=== PATIENT | female | born 2000 | race Caucasian/White ===

== ENCOUNTER 2021-01-15 18:19 | Emergency (ER) | payer MEDICAID, SELFPAY ==
[2021-01-15 18:52] VITALS: BP 118/71; PULSE 101; RESP 16; TEMP 37.4; O2SAT 97; BMI 41.6
--- NOTE | 2021-01-15 20:38 | ED.NAVMDI ---
HPI - Nausea/Vomiting/Diarrhea General Chief complaint: Nausea/Vomiting/Diarrhea <NEYMAR Saba Last Filed: 01/15/21 20:59> Stated complaint: vomiting - 11wks preg <NEYMAR Saba Last Filed: 01/15/21 20:59> Time Seen by Provider: 01/15/21 19:50 <NEYMAR Saba Last Filed: 01/15/21 20:59> Source: patient <NEYMAR Saba Last Filed: 01/15/21 20:59> Mode of arrival: ambulatory <NEYMAR Saba Last Filed: 01/15/21 20:59> History of Present Illness HPI Narrative: 20-year-old female at 11 weeks gestation presenting to the ED complaining of nausea, vomiting, and lightheadedness x a few weeks. Admits has been unable to tolerate p.o. x past couple days. Denies fever, chills, abdominal pain, vaginal bleeding, vaginal discharge, dysuria, hematuria <NEYMAR Saba Last Filed: 01/15/21 20:59> MD elicited complaint: nausea and vomiting <NEYMAR Saba Last Filed: 01/15/21 20:59> Related Data Allergies/Adverse reactions: Allergies Allergy/AdvReac Type Severity Reaction Status Date / Time No Known Allergies Allergy Unverified 04/15/20 19:07 <NEYMAR Saba Last Filed: 01/15/21 20:59> Review of Systems Review of Systems: Constitutional: No Fever, No Chills, No Fatigue, No Malaise Cardiovascular: No Chest Pain, No SOB Respiratory: No Cough, No Dyspnea Gastrointestinal: + Nausea, + Vomiting, No Diarrhea, No Constipation, No Abdominal pain Genitourinary: No irregular bleeding, No Dysuria, No Hematuria, No Flank Pain, No vaginal bleeding, No vaginal discharge Musculoskeletal: No joint pain, No Myalgias, No Joint Swelling Skin: No Skin Lesions, No rash Neuro: No Weakness, No Headache <NEYMAR Saba Last Filed: 01/15/21 20:59> Yes all other systems are reviewed and are negative <NEYMAR Saba Last Filed: 01/15/21 20:59> ON LICENSE OF [facility] Past Medical History Attestation statement: The following information was validated with the patient. <NEYMAR Saba - Last Filed: 01/15/21 20:59> Social History Social History: Social History Advance Directives: No Advance Directives Information Provided: No Patient : Yes <NEYMAR Saba - Last Filed: 01/15/21 20:59> Physical Exam Vital Signs: Vital Signs: Last Vital Signs Temp 99.1 F 01/15/21 23:47 Pulse 85 01/15/21 23:47 Resp 16 01/15/21 23:47 BP 112/74 01/15/21 23:47 Pulse Ox 98 01/15/21 23:47 Body Mass Index 41.6 <NEYMAR Saba - Last Filed: 01/15/21 20:59> Vital Signs: Last Vital Signs Temp 99.1 F 01/15/21 23:47 Pulse 85 01/15/21 23:47 Resp 16 01/15/21 23:47 BP 112/74 01/15/21 23:47 Pulse Ox 98 01/15/21 23:47 Body Mass Index 41.6 <FLAVIO Holm- - Last Filed: 01/16/21 01:18> Const: General: cooperative, healthy appearing, no acute distress, well developed and alert <NEYMAR Saba - Last Filed: 01/15/21 20:59> Orientation/consciousness: patient oriented x3 <NEYMAR Saba - Last Filed: 01/15/21 20:59> Limitations: no limitations <NEYMAR Saba - Last Filed: 01/15/21 20:59> HENMT: Head: Yes normal to inspection <NEYMAR Saba - Last Filed: 01/15/21 20:59> Ears: hearing grossly normal bilaterally <NEYMAR Saba - Last Filed: 01/15/21 20:59> General nose exam: Normal external nose present <NEYMAR Saba - Last Filed: 01/15/21 20:59> Face and sinus: Yes normal facial exam <NEYMAR Saba - Last Filed: 01/15/21 20:59> Eyes: General: appearance normal, both eyes and all related structures <NEYMAR Saba - Last Filed: 01/15/21 20:59> EOM: EOMs intact bilaterally <Patricia Grajeda PA - Last Filed: 01/15/21 20:59> Neck: Neck: Yes normal visual inspection and Yes no meningeal signs <Patricia Grajeda PA - Last Filed: 01/15/21 20:59> Resp: Effort & Inspection: normal respiratory effort <Patricia Grajeda PA - Last Filed: 01/15/21 20:59> Cardio: Rate: regular rate <Patricia Grajeda PA - Last Filed: 01/15/21 20:59> GI: Inspection: Yes normal to inspection <Patricia Grajeda PA - Last Filed: 01/15/21 20:59> Palpation (GI): Soft to palpation, nontender, no guarding and not rigid <Patricia Grajeda PA - Last Filed: 01/15/21 20:59> Skin: Rashes: no rashes <Patricia Grajeda PA - Last Filed: 01/15/21 20:59> Wounds: no wounds <Patricia Grajdea PA - Last Filed: 01/15/21 20:59> Neuro: General: patient oriented x3 and no meningeal signs <Patricia Grajeda PA - Last Filed: 01/15/21 20:59> Gait exam (Neuro): Normal gait present <Patricia Grajeda PA - Last Filed: 01/15/21 20:59> Extrem: General: Yes normal to inspection <Patricia Grajeda PA - Last Filed: 01/15/21 20:59> Course Course Course Narrative: -2100--ED care transferred to [facility] pending labs, UA, p.o. challenge, and re-evaluation <Patricia Grajeda PA - Last Filed: 01/15/21 20:59> Labs reviewed and negative for leukocytosis or anemia, urine negative for infection, patient able to tolerate p.o. fluids and crackers. She will be sent home to follow-up with her PCP, [facility] [id number]. Patient has an appointment with her OBGYN at [facility] on Sunday. <FLAVIO Holm-BC - Last Filed: 01/16/21 01:18> MDM - Nausea/Vomiting/Diarrhea MDM Narrative Medical decision making narrative: 20-year-old female at 11 weeks gestation presenting to the ED complaining of nausea, vomiting, and lightheadedness x a few weeks. Admits has been unable to tolerate p.o. x past couple days. On exam tachycardic, NAD, nontoxic appearing, abdomen soft/nontender. Concern for hyperemesis vs dehydration vs metabolic abnormalities. Low concern for infectious etiology. Plan: Labs, UA, IVF, antiemetics, p.o. challenge, reassess <NEYMAR Saba - Last Filed: 01/15/21 20:59> Medical Records Attestation: I reviewed the patient's medical records. <NEYMAR Saba - Last Filed: 01/15/21 20:59> Lab Data Attestation: I reviewed the patient's lab results. <NEYMAR Saba - Last Filed: 01/15/21 20:59> Result diagrams: : 01/15/21 21:02 01/15/21 21:02 <NEYMAR Saba - Last Filed: 01/15/21 20:59> Labs: Lab Results 01/15/21 01/15/21 01/15/21 Range/Units 21:02 21:02 21:02 WBC 10.3 (4.8-10.8) X10*3/uL RBC 5.17 (4.20-5.50) X10*6/uL Hgb 12.5 (12.0-16.0) g/dl Hct 39.4 (37-47) % MCV 76.2 L (80-98) fL MCH 24.2 L (27.0-33.0) pg MCHC 31.7 (31.0-35.0) g/dl RDW 14.1 (11.0-16.0) % Plt Count 378 (160-400) X10*3/uL MPV 9.1 L (9.4-12.3) fL Immature Gran % (Auto) 0.3 (0.0-0.4) % Neut % (Auto) 71.6 (45-73) % Lymph % (Auto) 20.1 (20-40) % [place] % (Auto) 6.9 (2-11) % Eos % (Auto) 1.0 (0-4) % Baso % (Auto) 0.1 (0-2) % Lymph # (Auto) 2.1 (1.2-4.9) X10*3/uL [place] # (Auto) 0.7 (0.1-1.2) X10*3/uL Eos # (Auto) 0.1 (0.0-0.4) X10*3/uL Baso # (Auto) 0.0 (0.0-0.2) X10*3/uL Abs Immat Gran (auto) 0.03 (0.00-0.03) X10*3/uL Absolute Neuts (auto) 7.4 (2.0-8.3) X10*3/uL Absolute Nucleated RBC 0.000 (0.0-0.012) X10*3/uL Nucleated RBC % (auto) 0.0 (0.0-0.2) /100WBC Hold Blue Top SEE NOTE Sodium 137 (135-145) mmol/L Potassium 4.4 (3.3-5.1) mmol/L Chloride 106 (96-108) mmol/L Carbon Dioxide 20 L (22-29) mmol/L Anion Gap 15 (12-20) BUN 7 L (9-16) mg/dL Creatinine 0.58 (0.5-1.4) mg/dL Estim Creat Clear Calc 189.1 Estimated GFR > 60 Random Glucose 76 (60-115) mg/dL Calcium 9.6 (8.4-10.2) mg/dL Magnesium 1.9 (1.6-2.6) mg/dL Total Bilirubin 0.3 (0.0-1.0) mg/dL Direct Bilirubin < 0.2 (0.0-0.5) mg/dL AST 14 (5-31) U/L ALT 9 (0-31) U/L Alkaline Phosphatase 100 (39-117) U/L Total Protein 8.0 (6.5-8.0) g/dL Albumin 4.0 (3.5-5.0) g/dL Lipase 13 (8-78) U/L Beta HCG, Quant 871307 mIU/mL Urine Color Urine Appearance Urine pH (5.0-8.0) Ur Specific University (1.005-1.025) Urine Protein (NEG-TRACE) MG/DL Urine Glucose (UA) (NEG) MG/DL Urine Ketones (NEG) MG/DL Urine Blood (NEG) Urine Nitrite (NEG) Ur Leukocyte Esterase (NEG) Urine RBC (0) /HPF Urine WBC (0-4) /HPF Ur Squamous Epith Cells /LPF Calcium Oxalate Crystal /LPF Urine Bacteria /LPF Urine Mucus /LPF 01/15/21 Range/Units 21:02 WBC (4.8-10.8) X10*3/uL RBC (4.20-5.50) X10*6/uL Hgb (12.0-16.0) g/dl Hct (37-47) % MCV (80-98) fL MCH (27.0-33.0) pg MCHC (31.0-35.0) g/dl RDW (11.0-16.0) % Plt Count (160-400) X10*3/uL MPV (9.4-12.3) fL Immature Gran % (Auto) (0.0-0.4) % Neut % (Auto) (45-73) % Lymph % (Auto) (20-40) % [place] % (Auto) (2-11) % Eos % (Auto) (0-4) % Baso % (Auto) (0-2) % Lymph # (Auto) (1.2-4.9) X10*3/uL [place] # (Auto) (0.1-1.2) X10*3/uL Eos # (Auto) (0.0-0.4) X10*3/uL Baso # (Auto) (0.0-0.2) X10*3/uL Abs Immat Gran (auto) (0.00-0.03) X10*3/uL Absolute Neuts (auto) (2.0-8.3) X10*3/uL Absolute Nucleated RBC (0.0-0.012) X10*3/uL Nucleated RBC % (auto) (0.0-0.2) /100WBC Hold Blue Top Sodium (135-145) mmol/L Potassium (3.3-5.1) mmol/L Chloride (96-108) mmol/L Carbon Dioxide (22-29) mmol/L Anion Gap (12-20) BUN (9-16) mg/dL Creatinine (0.5-1.4) mg/dL Estim Creat Clear Calc Estimated GFR Random Glucose (60-115) mg/dL Calcium (8.4-10.2) mg/dL Magnesium (1.6-2.6) mg/dL Total Bilirubin (0.0-1.0) mg/dL Direct Bilirubin (0.0-0.5) mg/dL AST (5-31) U/L ALT (0-31) U/L Alkaline Phosphatase (39-117) U/L Total Protein (6.5-8.0) g/dL Albumin (3.5-5.0) g/dL Lipase (8-78) U/L Beta HCG, Quant mIU/mL Urine Color DARK YELLOW Urine Appearance CLEAR Urine pH 5.5 (5.0-8.0) Ur Specific University >= 1.030 H (1.005-1.025) Urine Protein NEG (NEG-TRACE) MG/DL Urine Glucose (UA) NEG (NEG) MG/DL Urine Ketones 5 (NEG) MG/DL Urine Blood 2+ H (NEG) Urine Nitrite NEG (NEG) Ur Leukocyte Esterase NEG (NEG) Urine RBC 0-2 (0) /HPF Urine WBC 0-2 (0-4) /HPF Ur Squamous Epith Cells TRACE /LPF Calcium Oxalate Crystal TRACE /LPF Urine Bacteria TRACE /LPF Urine Mucus 1+ /LPF <NEYMAR Saba - Last Filed: 01/15/21 20:59> Lab Results 01/15/21 01/15/21 01/15/21 Range/Units 21:02 21:02 21:02 WBC 10.3 (4.8-10.8) X10*3/uL RBC 5.17 (4.20-5.50) X10*6/uL Hgb 12.5 (12.0-16.0) g/dl Hct 39.4 (37-47) % MCV 76.2 L (80-98) fL MCH 24.2 L (27.0-33.0) pg MCHC 31.7 (31.0-35.0) g/dl RDW 14.1 (11.0-16.0) % Plt Count 378 (160-400) X10*3/uL MPV 9.1 L (9.4-12.3) fL Immature Gran % (Auto) 0.3 (0.0-0.4) % Neut % (Auto) 71.6 (45-73) % Lymph % (Auto) 20.1 (20-40) % [place] % (Auto) 6.9 (2-11) % Eos % (Auto) 1.0 (0-4) % Baso % (Auto) 0.1 (0-2) % Lymph # (Auto) 2.1 (1.2-4.9) X10*3/uL [place] # (Auto) 0.7 (0.1-1.2) X10*3/uL Eos # (Auto) 0.1 (0.0-0.4) X10*3/uL Baso # (Auto) 0.0 (0.0-0.2) X10*3/uL Abs Immat Gran (auto) 0.03 (0.00-0.03) X10*3/uL Absolute Neuts (auto) 7.4 (2.0-8.3) X10*3/uL Absolute Nucleated RBC 0.000 (0.0-0.012) X10*3/uL Nucleated RBC % (auto) 0.0 (0.0-0.2) /100WBC Hold Blue Top SEE NOTE Sodium 137 (135-145) mmol/L Potassium 4.4 (3.3-5.1) mmol/L Chloride 106 (96-108) mmol/L Carbon Dioxide 20 L (22-29) mmol/L Anion Gap 15 (12-20) BUN 7 L (9-16) mg/dL Creatinine 0.58 (0.5-1.4) mg/dL Estim Creat Clear Calc 189.1 Estimated GFR > 60 Random Glucose 76 (60-115) mg/dL Calcium 9.6 (8.4-10.2) mg/dL Magnesium 1.9 (1.6-2.6) mg/dL Total Bilirubin 0.3 (0.0-1.0) mg/dL Direct Bilirubin < 0.2 (0.0-0.5) mg/dL AST 14 (5-31) U/L ALT 9 (0-31) U/L Alkaline Phosphatase 100 (39-117) U/L Total Protein 8.0 (6.5-8.0) g/dL Albumin 4.0 (3.5-5.0) g/dL Lipase 13 (8-78) U/L Beta HCG, Quant 429018 mIU/mL Urine Color Urine Appearance Urine pH (5.0-8.0) Ur Specific University (1.005-1.025) Urine Protein (NEG-TRACE) MG/DL Urine Glucose (UA) (NEG) MG/DL Urine Ketones (NEG) MG/DL Urine Blood (NEG) Urine Nitrite (NEG) Ur Leukocyte Esterase (NEG) Urine RBC (0) /HPF Urine WBC (0-4) /HPF Ur Squamous Epith Cells /LPF Calcium Oxalate Crystal /LPF Urine Bacteria /LPF Urine Mucus /LPF 01/15/21 Range/Units 21:02 WBC (4.8-10.8) X10*3/uL RBC (4.20-5.50) X10*6/uL Hgb (12.0-16.0) g/dl Hct (37-47) % MCV (80-98) fL MCH (27.0-33.0) pg MCHC (31.0-35.0) g/dl RDW (11.0-16.0) % Plt Count (160-400) X10*3/uL MPV (9.4-12.3) fL Immature Gran % (Auto) (0.0-0.4) % Neut % (Auto) (45-73) % Lymph % (Auto) (20-40) % [place] % (Auto) (2-11) % Eos % (Auto) (0-4) % Baso % (Auto) (0-2) % Lymph # (Auto) (1.2-4.9) X10*3/uL [place] # (Auto) (0.1-1.2) X10*3/uL Eos # (Auto) (0.0-0.4) X10*3/uL Baso # (Auto) (0.0-0.2) X10*3/uL Abs Immat Gran (auto) (0.00-0.03) X10*3/uL Absolute Neuts (auto) (2.0-8.3) X10*3/uL Absolute Nucleated RBC (0.0-0.012) X10*3/uL Nucleated RBC % (auto) (0.0-0.2) /100WBC Hold Blue Top Sodium (135-145) mmol/L Potassium (3.3-5.1) mmol/L Chloride (96-108) mmol/L Carbon Dioxide (22-29) mmol/L Anion Gap (12-20) BUN (9-16) mg/dL Creatinine (0.5-1.4) mg/dL Estim Creat Clear Calc Estimated GFR Random Glucose (60-115) mg/dL Calcium (8.4-10.2) mg/dL Magnesium (1.6-2.6) mg/dL Total Bilirubin (0.0-1.0) mg/dL Direct Bilirubin (0.0-0.5) mg/dL AST (5-31) U/L ALT (0-31) U/L Alkaline Phosphatase (39-117) U/L Total Protein (6.5-8.0) g/dL Albumin (3.5-5.0) g/dL Lipase (8-78) U/L Beta HCG, Quant mIU/mL Urine Color DARK YELLOW Urine Appearance CLEAR Urine pH 5.5 (5.0-8.0) Ur Specific University >= 1.030 H (1.005-1.025) Urine Protein NEG (NEG-TRACE) MG/DL Urine Glucose (UA) NEG (NEG) MG/DL Urine Ketones 5 (NEG) MG/DL Urine Blood 2+ H (NEG) Urine Nitrite NEG (NEG) Ur Leukocyte Esterase NEG (NEG) Urine RBC 0-2 (0) /HPF Urine WBC 0-2 (0-4) /HPF Ur Squamous Epith Cells TRACE /LPF Calcium Oxalate Crystal TRACE /LPF Urine Bacteria TRACE /LPF Urine Mucus 1+ /LPF <FLAVIO Holm-MCKAYLA - Last Filed: 01/16/21 01:18> Discharge Plan Discharge Clinical Impression: Nausea and vomiting during , Dehydration <NEYMAR Saba - Last Filed: 01/15/21 20:59> Patient Disposition: Home, Self-Care <NEYMAR Saba - Last Filed: 01/15/21 20:59> Instructions: Hyperemesis Gravidarum (ED) <NEYMAR Saba - Last Filed: 01/15/21 20:59> Additional Instructions: You were seen here today for vomiting. All the lab work was negative for any abnormal findings. Please follow-up with your OBGYN in 2-3 days. You may return if you will experience worsening symptoms. Please make sure you drink plenty of fluids and stay hydrated. <NEYMAR Saba - Last Filed: 01/15/21 20:59> Referrals: Rajan Conley MD [Physician] - 2 days <NEYMAR Saba - Last Filed: 01/15/21 20:59> Interventions: ED Discharge Assessment Last Done: 01/15/21 23:47 <NEYMAR Saba - Last Filed: 01/15/21 20:59> Discharge Date/Time: 01/15/21 23:48 <NEYMAR Saba - Last Filed: 01/15/21 20:59>
[2021-01-15] MEDS: diphenhydrAMINE HCL 50 MG/ML VIAL 25 MG IVPUSH (21:04)
[2021-01-15] MEDS: 0.9 % Sodium Chloride 1,000 ML 999 ML IVCONT ×2 (21:04)
[2021-01-15 21:10] LABS: MANUAL DIFF FLAG NO
[2021-01-15 21:11] LABS: Basophils Percent Auto 0.1 % (0-2); Eosinophils Absolute Auto 0.1 X10*3/uL (0.0-0.4); Hematocrit 39.4 % (37-47); Hemoglobin 12.5 g/dl (12.0-16.0); Imm Gran Abs Auto 0.03 X10*3/uL (0.00-0.03); Imm Gran Pct Auto 0.3 % (0.0-0.4); Lymphocytes Absolute Auto 2.1 X10*3/uL (1.2-4.9); Lymphocytes Percent Auto 20.1 % (20-40); Mean Corpuscular HGB Conc 31.7 g/dl (31.0-35.0); Mean Corpuscular Hemoglobin 24.2 pg (27.0-33.0); Mean Corpuscular Volume 76.2 fL (80-98); Mean Platelet Volume 9.1 fL (9.4-12.3); Monocytes Absolute Auto 0.7 X10*3/uL (0.1-1.2); Monocytes Percent Auto 6.9 % (2-11); Neutrophils Absolute Auto 7.4 X10*3/uL (2.0-8.3); Neutrophils Percent Auto 71.6 % (45-73); Platelet Count 378 X10*3/uL (160-400); Red Blood Count 5.17 X10*6/uL (4.20-5.50); Red Cell Distribution Width 14.1 % (11.0-16.0); White Blood Count 10.3 X10*3/uL (4.8-10.8)
[2021-01-15] MEDS: Pyridoxine HCl (Vitamin B6) 50 MG TABLET 25 MG PO (21:27)
[2021-01-15 21:30] LABS: Glucose Urine UA NEG (NEG); Leukocyte Esterase Urine NEG (NEG); Nitrite Urine NEG (NEG); PH 5.5 (5.0-8.0); Specific Gravity - Urine >= 1.030 (1.005-1.025); Urine Blood 2+ (NEG); Urine Ketones 5 MG/DL (NEG); Urine Protein NEG (NEG-TRACE)
[2021-01-15 21:32] LABS: Appearance Urine CLEAR; Color Urine DARK YELLOW
[2021-01-15 21:39] LABS: Alanine Aminotransferase 9 U/L (0-31); Alkaline Phosphatase 100 U/L (39-117); Anion Gap 15 (12-20); Aspartate Amino Transferase 14 U/L (5-31); Bilirubin Direct < 0.2 mg/dL (0.0-0.5); Bilirubin Total 0.3 mg/dL (0.0-1.0); Blood Urea Nitrogen 7 mg/dL (9-16); Calcium 9.6 mg/dL (8.4-10.2); Carbon Dioxide 20 mmol/L (22-29); Chloride 106 mmol/L (96-108); Creatinine Clr Calc Pharmacy 189.1; Estimated Glomerular Filt Rate > 60; Glucose Random 76 mg/dL (60-115); Lipase 13 U/L (8-78); Magnesium 1.9 mg/dL (1.6-2.6); Potassium 4.4 mmol/L (3.3-5.1); Sodium 137 mmol/L (135-145)
[2021-01-15 22:02] LABS: Bacteria Urine TRACE /LPF; Mucus Urine 1+ /LPF; RBC Urine 0-2 /HPF (0); Squamous Epithelial Cell Urine TRACE /LPF; WBC Urine 0-2 /HPF (0-4)
[2021-01-15 22:03] LABS: Calcium Oxalate Crystals Urine TRACE /LPF
[2021-01-15 23:47] VITALS: BP 112/74; PULSE 85; RESP 16; TEMP 37.3; O2SAT 98
== END 2021-01-15 23:48 | disposition home or self-care (01) ==
PROVIDERS: Physician Assistant; Emergency Provider Internal Medicine
DX: O99.281 Endocrine, nutritional and metabolic diseases complicating pregnancy, first trimester (principal); E86.0 Dehydration; O21.9 Vomiting of pregnancy, unspecified; Z3A.11 11 weeks gestation of pregnancy
CPT/HCPCS: 36415; 80048; 80076; 81001; 83690; 83735; 84702; 85025; 96361; 96374; 99284; J1200

== ENCOUNTER 2021-02-18 16:54 | Emergency (ER) | payer MEDICAID, SELFPAY ==
[2021-02-18 17:12] VITALS: BP 107/53; PULSE 115; RESP 19; TEMP 37.1; O2SAT 99; BMI 41.1
--- NOTE | 2021-02-18 17:13 | ED.GENADULT ---
HPI - General Adult General Chief complaint: Upper Respiratory Symptoms Stated complaint: Asthma? Time Seen by Provider: 02/18/21 17:12 Related Data Allergies Allergy/AdvReac Type Severity Reaction Status Date / Time No Known Allergies Allergy Verified 02/18/21 17:20 [facility] Past Medical History Medical History (Updated 02/18/21 @ 17:16 by Brigette Ricci) Asthma Social History Social History Patient : Yes Course Course Course Narrative: 20-year-old female who is currently 16 weeks has a follow-up appointment [facility] March 02 she recently moved from [place] and she was diagnosed in [place] with this new due date Aug 04 confirmed by last menstrual. Has not had an ultrasound. She is [id number]. She is presenting to the ED with complaints of URI symptoms which includes rhinorrhea/nasal congestion, sore throat, dry cough with wheezing and shortness of breath for the past 3 days worse today. She also reports that she has been having nausea/vomiting and unable to keep anything down due to her . Any urinary symptoms or vaginal bleeding. She reports daughter was sick with similar symptoms. She denies recent travel. On exam patient is alert and oriented x3. Not in any acute distress. She is stable to go back to the waiting room to await for further evaluation treatment to the emergency department. At this time labs, COVID/RSV/flu and rapid strep obtained. Patient declined x-ray at this time.
[2021-02-18 18:07] LABS: IDNOW Serial# 08D9AD1C; Strep A Nucleic Acid Negative (Negative)
[2021-02-18 18:15] LABS: MANUAL DIFF FLAG NO
[2021-02-18 18:16] LABS: Influenza A PCR NEGATIVE (Negative); Influenza B PCR NEGATIVE (Negative); Resp Syncy Virus RNA Qual PCR NEGATIVE (Negative); SARS COV2 PCR INHOUSE NEGATIVE (Negative)
[2021-02-18 18:24] LABS: Appearance Urine HAZY; Color Urine YELLOW; Glucose Urine UA NEG (NEG); Leukocyte Esterase Urine NEG (NEG); Nitrite Urine NEG (NEG); Specific Gravity - Urine >= 1.030 (1.005-1.025); Urine Blood 2+ (NEG); Urine Ketones NEG (NEG); Urine Protein 1+ MG/DL (NEG-TRACE)
[2021-02-18 18:25] LABS: UPreg QC Valid YES; Urine Pregnancy POSITIVE (NEGATIVE)
[2021-02-18 18:29] LABS: Basophils Percent Auto 0.1 % (0-2); Eosinophils Absolute Auto 0.1 X10*3/uL (0.0-0.4); Eosinophils Percent Auto 1.1 % (0-4); Hematocrit 36.1 % (37-47); Hemoglobin 11.7 g/dl (12.0-16.0); Imm Gran Abs Auto 0.12 X10*3/uL (0.00-0.03); Lymphocytes Absolute Auto 1.2 X10*3/uL (1.2-4.9); Lymphocytes Percent Auto 10.8 % (20-40); Mean Corpuscular HGB Conc 32.4 g/dl (31.0-35.0); Mean Corpuscular Hemoglobin 24.1 pg (27.0-33.0); Mean Corpuscular Volume 74.3 fL (80-98); Mean Platelet Volume 9.2 fL (9.4-12.3); Monocytes Absolute Auto 0.9 X10*3/uL (0.1-1.2); Monocytes Percent Auto 7.9 % (2-11); Neutrophils Percent Auto 79.1 % (45-73); Platelet Count 327 X10*3/uL (160-400); Red Blood Count 4.86 X10*6/uL (4.20-5.50); Red Cell Distribution Width 14.1 % (11.0-16.0); White Blood Count 11.4 X10*3/uL (4.8-10.8)
[2021-02-18 18:44] LABS: Anion Gap 13 (12-20); Blood Urea Nitrogen 5 mg/dL (9-16); Calcium 9.3 mg/dL (8.4-10.2); Carbon Dioxide 20 mmol/L (22-29); Chloride 106 mmol/L (96-108); Creatinine Clr Calc Pharmacy 191.3; Estimated Glomerular Filt Rate > 60; Glucose Random 87 mg/dL (60-115); Magnesium 1.6 mg/dL (1.6-2.6); Potassium 3.9 mmol/L (3.3-5.1); Sodium 135 mmol/L (135-145)
[2021-02-18 19:13] LABS: UACC CULT YES
[2021-02-18 19:14] LABS: Bacteria Urine 1+ /LPF; Calcium Oxalate Crystals Urine 1+ /LPF; Mucus Urine 2+ /LPF; Squamous Epithelial Cell Urine 1+ /LPF
--- NOTE | 2021-02-18 19:25 | ED_ITS ---
HPI - URI/Sore Throat General Chief Complaint: Upper Respiratory Symptoms Stated Complaint: Asthma? Time Seen by Provider: 02/18/21 17:12 Source: patient Mode of arrival: ambulatory Limitations: no limitations History of Present Illness HPI Narrative: Patient presents to ED for coughing, sore throat, and nasal congestion for the past 2 days. Patient denies any chest pain or shortness of breath. Patient denies any calf pain, chest pain on inspiration, fever or chills. Patient states not vaccinated against COVID virus. MD elicited complaint: cough and sore throat Related Data Previous Rx's Medication Instructions Recorded nitrofurantoin monohyd/m-cryst 100 mg PO Q12H 7 Days #14 cap 02/18/21 [Macrobid] Allergies Allergy/AdvReac Type Severity Reaction Status Date / Time No Known Allergies Allergy Verified 02/18/21 17:20 Review of Systems Review of Systems: Yes all other systems are reviewed and are negative Constitutional: Constitutional: Reports as per HPI and Reports no additional constitutional complaints Eyes: Eyes: Reports as per HPI and Reports no additional eye complaints ENT: Reports system reviewed and no additional complaints, except as documented, Reports as per HPI, Reports nasal congestion and Reports sore throat Cardiovascular: Cardiovascular: Reports as per HPI, Reports no additional cardiovascular complaints, Denies chest pain and Denies dyspnea Respiratory: Respiratory: Reports as per HPI, Reports no additional respiratory complaints, Reports cough and Denies dyspnea Gastrointestinal: Gastrointestinal: Reports as per HPI, Reports no additional gastrointestinal complaints and Denies abdominal pain Genitourinary: Genitourinary: Reports no additional female genitourinary complaints, Reports as per HPI, Denies abnormal vaginal bleeding, Denies urinary frequency, Denies difficulty voiding and Denies dysuria Musculoskeletal: Musculoskeletal: Reports no additional musculoskeletal complaints and Denies as per HPI Neurologic: Reports system reviewed and no additional complaints, except as documented and Reports as per HPI Psychiatric: Psychiatric: Reports no additional psychiatric complaints and Reports as per HPI [facility] Past Medical History Medical History (Updated 02/18/21 @ 19:32 by NEYMAR Mireles) Asthma Social History Social History Advance Directives: No Advance Directives Information Provided: Yes Patient : Yes Physical Exam Vital Signs: Vital Signs: Last Vital Signs Temp 98.8 F 02/18/21 17:12 Pulse 115 H 02/18/21 17:12 Resp 19 02/18/21 17:12 BP 107/53 L 02/18/21 17:12 Pulse Ox 99 02/18/21 17:12 Body Mass Index 41.1 Const: General: cooperative, healthy appearing, comfortable, no acute distress, well developed, alert and awake Orientation/consciousness: patient oriented x3 HENMT: Head: Yes normal to inspection, Yes No palpable skull fracture present, Yes normocephalic, Yes atraumatic and No abrasion Ears: hearing grossly normal bilaterally and external ears normal General nose exam: Normal external nose present and Normal nares present Face and sinus: Yes normal facial exam and Yes sinuses nontender Throat: Yes posterior oropharynx normal, Yes tonsils normal and Yes uvula midline Eyes: General: appearance normal, both eyes and all related structures Neck: Neck: Yes normal visual inspection, Yes full ROM, Yes no lymphadenopathy, Yes no meningeal signs, Yes trachea midline, Yes supple and No tender Chest: Chest palpation & inspection: normal inspection of the chest and normal palpation of entire chest wall Resp: Effort & Inspection: normal respiratory effort and able to speak in complete sentences Auscultation: clear to auscultation bilaterally Cardio: Jugular venous distension: no JVD Heart sounds: S1 normal heart sound present and S2 normal heart sound present GI: Inspection: Yes normal to inspection Palpation (GI): Soft to palpation, not firm, nontender, no guarding and not rigid : General: No CVA tenderness and Yes no CVA tenderness Back/Spine/Pelvis: Back: no CVA tenderness, No CVA tenderness and No back tenderness Skin: General skin exam: no rashes or lesions noted and elasticity normal Neuro: General: patient oriented x3, gait normal, no meningeal signs and CN's II-XI intact bilaterally Cranial nerves: Yes CN's II-XII intact bilaterally Extrem: Other: Negative for swelling, pitting edema,or calf tenderness General: Yes normal to inspection and Yes full ROM Psych: Appearance: grossly normal, well kempt and not disheveled Course Course Course Narrative: Labs ordered at triage. COVID swab ordered. Patient refuses chest x-ray to check for pneumonia even though I informed patient her abdomen will be covered with a shield. Patient still refused a chest x-ray. Reevaluation(s) Reevaluation #1: COVID swab and rapid strep came back negative. Patient blood work is normal. Lungs negative for wheezing. Nurse will give patient albuterol inhaler to use as needed. Patient formally Tylenol safe. UA shows mild UTI Time: 19:30 MDM - URI/Sore Throat MDM Narrative Medical decision making narrative: UTI. Albuterol inhaler Lab Data Result diagrams: 02/18/21 18:08 02/18/21 18:08 Labs: Lab Results 02/18/21 02/18/21 02/18/21 Range/Units 17:21 17:21 18:03 WBC (4.8-10.8) X10*3/uL RBC (4.20-5.50) X10*6/uL Hgb (12.0-16.0) g/dl Hct (37-47) % MCV (80-98) fL MCH (27.0-33.0) pg MCHC (31.0-35.0) g/dl RDW (11.0-16.0) % Plt Count (160-400) X10*3/uL MPV (9.4-12.3) fL Immature Gran % (Auto) (0.0-0.4) % Neut % (Auto) (45-73) % Lymph % (Auto) (20-40) % [place] % (Auto) (2-11) % Eos % (Auto) (0-4) % Baso % (Auto) (0-2) % Lymph # (Auto) (1.2-4.9) X10*3/uL [place] # (Auto) (0.1-1.2) X10*3/uL Eos # (Auto) (0.0-0.4) X10*3/uL Baso # (Auto) (0.0-0.2) X10*3/uL Abs Immat Gran (auto) (0.00-0.03) X10*3/uL Absolute Neuts (auto) (2.0-8.3) X10*3/uL Absolute Nucleated RBC (0.0-0.012) X10*3/uL Nucleated RBC % (auto) (0.0-0.2) /100WBC Sodium (135-145) mmol/L Potassium (3.3-5.1) mmol/L Chloride (96-108) mmol/L Carbon Dioxide (22-29) mmol/L Anion Gap (12-20) BUN (9-16) mg/dL Creatinine (0.5-1.4) mg/dL Estim Creat Clear Calc Estimated GFR Random Glucose (60-115) mg/dL Calcium (8.4-10.2) mg/dL Magnesium (1.6-2.6) mg/dL Beta HCG, Quant mIU/mL Urine Color YELLOW Urine Appearance HAZY Urine pH 6.0 (5.0-8.0) Ur Specific [place] >= 1.030 H (1.005-1.025) Urine Protein 1+ H (NEG-TRACE) MG/DL Urine Glucose (UA) NEG (NEG) MG/DL Urine Ketones NEG (NEG) MG/DL Urine Blood 2+ H (NEG) Urine Nitrite NEG (NEG) Ur Leukocyte Esterase NEG (NEG) Urine RBC 1-4 (0) /HPF Urine WBC 5-9 H (0-4) /HPF Ur Squamous Epith Cells 1+ /LPF Calcium Oxalate Crystal 1+ /LPF Urine Bacteria 1+ /LPF Urine Mucus 2+ /LPF Urine Test (NEGATIVE) Coronavirus (PCR) NEGATIVE (Negative) Influenza Type A (PCR) NEGATIVE (Negative) Influenza Type B (PCR) NEGATIVE (Negative) RSV RNA Qual (PCR) NEGATIVE (Negative) S. pyogenes GrpA AILEEN Negative (Negative) 02/18/21 02/18/21 02/18/21 Range/Units 18:03 18:08 18:08 WBC 11.4 H (4.8-10.8) X10*3/uL RBC 4.86 (4.20-5.50) X10*6/uL Hgb 11.7 L (12.0-16.0) g/dl Hct 36.1 L (37-47) % MCV 74.3 L (80-98) fL MCH 24.1 L (27.0-33.0) pg MCHC 32.4 (31.0-35.0) g/dl RDW 14.1 (11.0-16.0) % Plt Count 327 (160-400) X10*3/uL MPV 9.2 L (9.4-12.3) fL Immature Gran % (Auto) 1.0 H (0.0-0.4) % Neut % (Auto) 79.1 H (45-73) % Lymph % (Auto) 10.8 L (20-40) % [place] % (Auto) 7.9 (2-11) % Eos % (Auto) 1.1 (0-4) % Baso % (Auto) 0.1 (0-2) % Lymph # (Auto) 1.2 (1.2-4.9) X10*3/uL [place] # (Auto) 0.9 (0.1-1.2) X10*3/uL Eos # (Auto) 0.1 (0.0-0.4) X10*3/uL Baso # (Auto) 0.0 (0.0-0.2) X10*3/uL Abs Immat Gran (auto) 0.12 H (0.00-0.03) X10*3/uL Absolute Neuts (auto) 9.0 H (2.0-8.3) X10*3/uL Absolute Nucleated RBC 0.000 (0.0-0.012) X10*3/uL Nucleated RBC % (auto) 0.0 (0.0-0.2) /100WBC Sodium 135 (135-145) mmol/L Potassium 3.9 (3.3-5.1) mmol/L Chloride 106 (96-108) mmol/L Carbon Dioxide 20 L (22-29) mmol/L Anion Gap 13 (12-20) BUN 5 L (9-16) mg/dL Creatinine 0.57 (0.5-1.4) mg/dL Estim Creat Clear Calc 191.3 Estimated GFR > 60 Random Glucose 87 (60-115) mg/dL Calcium 9.3 (8.4-10.2) mg/dL Magnesium 1.6 (1.6-2.6) mg/dL Beta HCG, Quant 86886 mIU/mL Urine Color Urine Appearance Urine pH (5.0-8.0) Ur Specific [place] (1.005-1.025) Urine Protein (NEG-TRACE) MG/DL Urine Glucose (UA) (NEG) MG/DL Urine Ketones (NEG) MG/DL Urine Blood (NEG) Urine Nitrite (NEG) Ur Leukocyte Esterase (NEG) Urine RBC (0) /HPF Urine WBC (0-4) /HPF Ur Squamous Epith Cells /LPF Calcium Oxalate Crystal /LPF Urine Bacteria /LPF Urine Mucus /LPF Urine Test POSITIVE H (NEGATIVE) Coronavirus (PCR) (Negative) Influenza Type A (PCR) (Negative) Influenza Type B (PCR) (Negative) RSV RNA Qual (PCR) (Negative) S. pyogenes GrpA AILEEN (Negative) Discharge Plan Discharge Clinical Impression: Upper respiratory infection Patient Disposition: Home, Self-Care Instructions: Upper Respiratory Infection (ED), Urinary Tract Infection in P regnancy (ED) Additional Instructions: Return to the ED immediately for any abdominal pain, nausea, vomiting, chest pain, shortness of breath, swelling of lower extremity, weakness, dizziness, vaginal bleeding, vaginal discharge, calf pain, chest pain on inspiration, flank pain, fever, chills, dysuria, hematuria, or any other concerning symptoms. Please follow-up with your thread roller or PCP. Taken Tylenol for any pain relief or fever. Use albuterol inhaler given to you by nurse as needed. Two puffs every 6 hours as needed. Prescriptions: New nitrofurantoin monohyd/m-cryst [Macrobid] 100 mg capsule 100 mg PO Q12H 7 Days Qty: 14 RF: 0 Print Language: Nauruan
[2021-02-18] MEDS: Albuterol Sulfate 90 MCG 8 GM INHALER 4 PUFF INHALE (19:56)
[2021-02-18 20:09] VITALS: BP 127/68; PULSE 98; RESP 18; O2SAT 99
== END 2021-02-18 20:15 | disposition home or self-care (01) ==
PROVIDERS: Physician Assistant; Physician Assistant Medical; Emergency Provider Emergency Medicine; PCP Pediatrics
DX: O99.519 Diseases of the respiratory system complicating pregnancy, unspecified trimester (principal); J06.9 Acute upper respiratory infection, unspecified; Z3A.00 Weeks of gestation of pregnancy not specified; Z20.822 Contact with and (suspected) exposure to COVID-19
CPT/HCPCS: 0241U; 36415; 80048; 81001; 81025; 83735; 84702; 85025; 87086; 87651; 99283; 99284

== ENCOUNTER 2021-06-02 01:00 | Emergency (ER) | payer MEDICAID, SELFPAY ==
[2021-06-02 01:16] VITALS: BP 128/72; PULSE 102; RESP 18; TEMP 37.1; O2SAT 99; BMI 42.5
[2021-06-02 01:37] LABS: MANUAL DIFF FLAG NO
[2021-06-02 01:38] LABS: Basophils Percent Auto 0.1 % (0-2); Eosinophils Absolute Auto 0.2 X10*3/uL (0.0-0.4); Eosinophils Percent Auto 1.5 % (0-4); Hematocrit 32.9 % (37.0-47.0); Hemoglobin 10.1 g/dl (12.0-16.0); Imm Gran Abs Auto 0.14 X10*3/uL (0.00-0.03); Lymphocytes Absolute Auto 2.2 X10*3/uL (1.2-4.9); Lymphocytes Percent Auto 15.6 % (20-40); Mean Corpuscular HGB Conc 30.7 g/dl (31.0-35.0); Mean Corpuscular Hemoglobin 22.1 pg (27.0-33.0); Mean Corpuscular Volume 71.8 fL (80.0-98.0); Mean Platelet Volume 8.9 fL (9.4-12.3); Monocytes Absolute Auto 1.1 X10*3/uL (0.1-1.2); Monocytes Percent Auto 7.6 % (2-11); Neutrophils Absolute Auto 10.52 x10*3/uL (2.0-8.3); Neutrophils Percent Auto 74.2 % (45-73); Platelet Count 373 X10*3/uL (160-400); Red Blood Count 4.58 X10*6/uL (4.20-5.50); Red Cell Distribution Width 16.1 % (11.0-16.0); White Blood Count 14.2 X10*3/uL (4.8-10.8)
[2021-06-02 01:54] LABS: COVID-19 Test Negative (Negative)
[2021-06-02 02:04] LABS: Alanine Aminotransferase 7 U/L (0-31); Albumin Level 3.5 g/dL (3.5-5.0); Alkaline Phosphatase 117 U/L (39-117); Anion Gap 11 (12-20); Aspartate Amino Transferase 9 U/L (5-31); Bilirubin Total < 0.2 mg/dL (0.0-1.0); Blood Urea Nitrogen 6 mg/dL (9-16); Calcium 9.4 mg/dL (8.4-10.2); Carbon Dioxide 22 mmol/L (22-29); Chloride 107 mmol/L (96-108); Creatinine Clr Calc Pharmacy 191.4; Estimated Glomerular Filt Rate > 60; Glucose Random 73 mg/dL (60-115); Sodium 136 mmol/L (135-145); Total Protein 6.8 g/dL (6.5-8.0)
--- NOTE | 2021-06-02 03:16 | ED_ITS ---
HPI - General Adult General Chief complaint: Dizziness Stated complaint: heartburn/ 31 weeks preg Time Seen by Provider: 06/02/21 03:10 Source: patient Mode of arrival: ambulatory Limitations: no limitations History of Present Illness HPI narrative: Patient is a at 31 weeks of gestational age. Patient states that she has been experiencing a lot of reflux. Patient has been taking pantoprazole without any relief. Patient denies abdominal pain, no cramping, no vaginal spotting/bleeding. She has been feeling weaker than usual, concerned that she has anemia. Patient states she takes iron and is compliant with her medications. Patient denies fever chills, no URI/UTI symptoms. Related Data Previous Rx's Medication Instructions Recorded nitrofurantoin 100 mg PO Q12H 7 Days #14 cap 02/18/21 monohydrate/macrocrystals 100 mg capsule (Macrobid) metoclopramide HCl 5 mg tablet 5 mg PO DAILY PRN #10 tab 06/02/21 (Reglan) sucralfate 1 gram tablet 1 g PO BID #14 tab 06/02/21 Allergies Allergy/AdvReac Type Severity Reaction Status Date / Time No Known Allergies Allergy Verified 06/02/21 01:16 Review of Systems Review of Systems: Constitutional : No Weight loss, No Fever, No Chills, No Night Sweats, No Fatigue, No Malaise ENT/Mouth : No Hearing loss, No Ear Pain, No Nasal Congestion, No Sinus Pain, No Hoarseness, No sore throat, No Rhinorrhea, No Swallowing Difficulty Eyes: No Eye Pain, No Swelling, No Redness, No Foreign Body, No Discharge, No Vision Changes Cardiovascular : No Chest Pain, No SOB, No Dyspnea on Exertion, No Orthopnea, No Edema, No Palpitations Respiratory : No Cough, No Sputum, No Wheezing, No Smoke Exposure, No Dyspnea Gastrointestinal : Complaining of nausea and occasional vomiting, complaining of reflux/burning sensation in the esophagus especially when lying down, No D iarrhea, No Constipation, No abdominal Pain, No Hematochezia, No Melena Genitourinary : no irregular bleeding, No Dysuria, No Urinary Frequency, No Hematuria, No Urinary Incontinence, No Urgency, No Flank Pain, No Urinary Flow Changes, No Hesitancy Musculoskeletal : No joint pain, No Myalgias, No Joint Swelling Skin : No Skin Lesions, No rash Neuro : No Weakness, No Numbness, No Paresthesias, No Loss of Consciousness, No Dizziness, No Headache Psych : No Anxiety/Panic, No Depression, No SI/HI/AH/VH, No Social Issues, Heme/Lymph: No Bruising, No Bleeding,No Lymphadenopathy Endocrine : No Polyuria, No Polydipsia, No Temperature Intolerance [facility] Past Medical History Medical History (Updated 06/02/21 @ 03:20 by Isabella Rogers MD) Asthma GERD (gastroesophageal reflux disease) Social History Social History Advance Directives: No Advance Directives Information Provided: Yes Patient : Yes Physical Exam Vital Signs: Vital Signs: Last Vital Signs Temp 98.8 F 06/02/21 01:16 Pulse 102 H 06/02/21 01:16 Resp 18 06/02/21 01:16 BP 128/72 06/02/21 01:16 Pulse Ox 99 06/02/21 01:16 Body Mass Index 42.5 Const: Other: Appearance: Alert. Oriented X3. No acute distress. Well- appearing Eyes: Pupils equal, round and reactive to light. ENT: Pharynx normal. Neck: Normal inspection. Neck supple. No lymph nodes noted. No crepitus CVS: Normal heart rate and rhythm. Pulses normal. Normal S1 and S2 Respiratory: No respiratory distress. Breath sounds normal. No Wheezing. No rales Abdomen: Soft and nontender. No rigidity. No distention. good BS x4 Skin: Skin warm and dry. Normal skin color. Normal skin turgor. Extremities: No lower extremity edema. No Lacerations. No Rash Neuro: Oriented X 3. No motor deficit. No sensory deficit. Moving all extermities. No slurred speech. Course Course Course Narrative: I discussed with the patient that we can change her medication to sucralfate, category B medication. However, I discussed with the patient that due to the pressure of the baby pushing into the stomach, patient will continue experiencing GERD until the baby is born. In the meantime we can help her symptomatically, but he will not be resolved until the baby is born. Medical Decision Making Lab Data Result diagrams: 06/02/21 01:30 06/02/21 01:30 Labs: Lab Results 06/02/21 06/02/21 06/02/21 Range/Units 01:30 01:30 01:30 WBC 14.2 H (4.8-10.8) X10*3/uL RBC 4.58 (4.20-5.50) X10*6/uL Hgb 10.1 L (12.0-16.0) g/dl Hct 32.9 L (37.0-47.0) % MCV 71.8 L (80.0-98.0) fL MCH 22.1 L (27.0-33.0) pg MCHC 30.7 L (31.0-35.0) g/dl RDW 16.1 H (11.0-16.0) % Plt Count 373 (160-400) X10*3/uL MPV 8.9 L (9.4-12.3) fL Immature Gran % (Auto) 1.0 H (0.0-0.4) % Neut % (Auto) 74.2 H (45-73) % Lymph % (Auto) 15.6 L (20-40) % [place] % (Auto) 7.6 (2-11) % Eos % (Auto) 1.5 (0-4) % Baso % (Auto) 0.1 (0-2) % Lymph # (Auto) 2.2 (1.2-4.9) X10*3/uL [place] # (Auto) 1.1 (0.1-1.2) X10*3/uL Eos # (Auto) 0.2 (0.0-0.4) X10*3/uL Baso # (Auto) 0.0 (0.0-0.2) X10*3/uL Abs Immat Gran (auto) 0.14 H (0.00-0.03) X10*3/uL Absolute Neuts (auto) 10.52 H (2.0-8.3) x10*3/uL Absolute Nucleated RBC 0.000 (0.0-0.012) X10*3/uL Nucleated RBC % (auto) 0.0 (0.0-0.2) /100WBC Sodium 136 (135-145) mmol/L Potassium 4.0 (3.3-5.1) mmol/L Chloride 107 (96-108) mmol/L Carbon Dioxide 22 (22-29) mmol/L Anion Gap 11 L (12-20) BUN 6 L (9-16) mg/dL Creatinine 0.58 (0.5-1.4) mg/dL Estim Creat Clear Calc 191.4 Estimated GFR > 60 Random Glucose 73 (60-115) mg/dL Calcium 9.4 (8.4-10.2) mg/dL Total Bilirubin < 0.2 (0.0-1.0) mg/dL AST 9 (5-31) U/L ALT 7 (0-31) U/L Alkaline Phosphatase 117 (39-117) U/L Total Protein 6.8 (6.5-8.0) g/dL Albumin 3.5 (3.5-5.0) g/dL COVID-19 ([facility]) Negative (Negative) COVID-19 Clin Com See Note Discharge Plan Discharge Clinical Impression: GERD (gastroesophageal reflux disease) Qualifiers: Esophagitis presence: without esophagitis Qualified Code(s): K21.9 - Gastro-e sophageal reflux disease without esophagitis Patient Disposition: Home, Self-Care Instructions: Gastroesophageal Reflux Disease (ED) Additional Instructions: Please follow-up with your primary care physician tomorrow. If you have any worsening or new symptoms, please return to the emergency room or call 911 Prescriptions: New sucralfate 1 gram tablet 1 g PO BID Qty: 14 RF: 0 metoclopramide HCl [Reglan] 5 mg tablet 5 mg PO DAILY PRN (Reason: nausea and vomiting) Qty: 10 RF: 0 No Action nitrofurantoin monohyd/m-cryst [Macrobid] 100 mg capsule 100 mg PO Q12H 7 Days Qty: 14 RF: 0
== END 2021-06-02 03:46 | disposition home or self-care (01) ==
PROVIDERS: Emergency Provider Emergency Medicine
DX: O99.613 Diseases of the digestive system complicating pregnancy, third trimester (principal); K21.9 Gastro-esophageal reflux disease without esophagitis; Z3A.31 31 weeks gestation of pregnancy; Z20.822 Contact with and (suspected) exposure to COVID-19
CPT/HCPCS: 36415; 80053; 85025; 87635; 99283

== ENCOUNTER 2021-07-07 16:32 | Emergency (ER) | payer MEDICAID, SELFPAY ==
[2021-07-07 17:36] VITALS: BP 111/73; PULSE 103; RESP 16; TEMP 37; O2SAT 98; BMI 42.5
[2021-07-07 18:03] LABS: COVID-19 Test Positive (Negative); IDNOW Serial# 9DD0AD1C
--- NOTE | 2021-07-07 19:00 | ED_ITS ---
HPI - General Adult General Chief complaint: General Medical Stated complaint: loss of taste and smell dizzy Time Seen by Provider: 07/07/21 18:35 Source: patient Mode of arrival: ambulatory Limitations: no limitations History of Present Illness HPI narrative: Patient comes emergency room complaining of fatigue and loss of taste and smell for the last 2 days. Patient denies fever chills, no shortness of breath, no chest pain Related Data Previous Rx's Medication Instructions Recorded nitrofurantoin 100 mg PO Q12H 7 Days #14 cap 02/18/21 monohydrate/macrocrystals 100 mg capsule (Macrobid) metoclopramide HCl 5 mg tablet 5 mg PO DAILY PRN #10 tab 06/02/21 (Reglan) sucralfate 1 gram tablet 1 g PO BID #14 tab 06/02/21 Allergies Allergy/AdvReac Type Severity Reaction Status Date / Time No Known Allergies Allergy Verified 06/02/21 01:16 Review of Systems Review of Systems: Constitutional : No Weight loss, No Fever, No Chills, No Night Sweats, planing of Fatigue, No Malaise ENT/Mouth : No Hearing loss, No Ear Pain, No Nasal Congestion, No Sinus Pain, No Hoarseness, No sore throat, No Rhinorrhea, No Swallowing Difficulty Eyes: No Eye Pain, No Swelling, No Redness, No Foreign Body, No Discharge, No Vision Changes Cardiovascular : No Chest Pain, No SOB, No Dyspnea on Exertion, No Orthopnea, No Edema, No Palpitations Respiratory : No Cough, No Sputum, No Wheezing, No Smoke Exposure, No Dyspnea Gastrointestinal : No Nausea, No Vomiting, No Diarrhea, No Constipation, No abdominal Pain, No Hematochezia, No Melena Genitourinary : no irregular bleeding, No Dysuria, No Urinary Frequency, No Hematuria, No Urinary Incontinence, No Urgency, No Flank Pain, No Urinary Flow Changes, No Hesitancy Musculoskeletal : No joint pain, No Myalgias, No Joint Swelling Skin : No Skin Lesions, No rash Neuro : No Weakness, No Numbness, No Paresthesias, No Loss of Consciousness, No Dizziness, No Headache Psych : No Anxiety/Panic, No Depression, No SI/HI/AH/VH, No Social Issues, Heme/Lymph: No Bruising, No Bleeding,No Lymphadenopathy Endocrine : No Polyuria, No Polydipsia, No Temperature Intolerance PMFSH Past Medical History Medical History (Updated 07/07/21 @ 19:14 by Isabella Rogers MD) Asthma GERD (gastroesophageal reflux disease) Social History Social History Advance Directives: No Advance Directives Information Provided: Yes Patient : Yes Physical Exam Vital Signs: Vital Signs: Last Vital Signs Temp 98.6 F 07/07/21 17:36 Pulse 103 H 07/07/21 17:36 Resp 16 07/07/21 17:36 BP 111/73 07/07/21 17:36 Pulse Ox 98 07/07/21 17:36 BMI result Body Mass Index 42.5 Const: Other: Appearance: Alert. Oriented X3. No acute distress. Eyes: Pupils equal, round and reactive to light. ENT: Pharynx normal. Neck: Normal inspection. Neck supple. No lymph nodes noted. No crepitus CVS: Normal heart rate and rhythm. Pulses normal. Normal S1 and S2 Respiratory: No respiratory distress, normal breath sounds, no wheezing Abdomen: Soft and nontender. No rigidity. No distention. good BS x4 Skin: Skin warm and dry. Normal skin color. Normal skin turgor. Extremities: No lower extremity edema. No lower extremity edema. No Lacerations. No Rash Neuro: Oriented X 3. No motor deficit. No sensory deficit. Moving all extermit ies. No slurred speech. Course Course Course Narrative: I discussed with the patient that given that she is 36 weeks of gestational age, she is a candidate for COVID-19 antibody infusion therapy. Patient would like to be referred. Documents have been emailed to the [facility] center Medical Decision Making Lab Data Labs: Lab Results 07/07/21 Range/Units 17:48 COVID-19 ([facility]) Positive A (Negative) COVID-19 Clin Com See Note Discharge Plan Discharge Clinical Impression: COVID-19 affecting in third trimester Patient Disposition: Home, Self-Care Instructions: COVID-19 (Coronavirus Disease 2019) (ED) Additional Instructions: You were referred to the COVID-19 monoclonal antibody infusion clinic. Please call to make sure that you have an appointment and also for directions. Please follow-up with your primary care physician tomorrow. If you have any worsening or new symptoms, please return to the emergency room or call 911 Prescriptions: No Action nitrofurantoin monohyd/m-cryst [Macrobid] 100 mg capsule 100 mg PO Q12H 7 Days Qty: 14 RF: 0 sucralfate 1 gram tablet 1 g PO BID Qty: 14 RF: 0 metoclopramide HCl [Reglan] 5 mg tablet 5 mg PO DAILY PRN (Reason: nausea and vomiting) Qty: 10 RF: 0
[2021-07-07 19:20] VITALS: BP 116/73; PULSE 96; RESP 18; O2SAT 99
== END 2021-07-07 19:22 | disposition home or self-care (01) ==
PROVIDERS: Emergency Provider Emergency Medicine
DX: O98.513 Other viral diseases complicating pregnancy, third trimester (principal); U07.1 COVID-19; Z3A.36 36 weeks gestation of pregnancy
CPT/HCPCS: 36415; 87635; 99283; 99284

== ENCOUNTER 2022-01-18 15:18 | Emergency (ER) | payer MEDICAID, SELFPAY ==
--- NOTE | ~2022-01-18 | US_ITS ---
EXAMINATION: US ABDOMEN LIMITED CLINICAL INFORMATION: Right upper quadrant pain with question of gallbladder/biliary disease. COMPARISON: None TECHNIQUE: Real-time imaging of the right upper quadrant abdominal viscera limited solely to the gallbladder and common bile duct. FINDINGS: GALLBLADDER: Layering small gallstones are present in the gallbladder. The gallbladder wall is only 2 mm thick. Negative Martinez's sign. No pericholecystic inflammatory changes or fluid collections are seen. COMMON BILE DUCT: Normal in caliber measuring 0.2 cm in diameter. US/US abdomen limited IMPRESSION: Cholelithiasis without evidence of cholecystitis
[2022-01-18 15:44] VITALS: BP 124/77; PULSE 93; RESP 20; TEMP 36.2; O2SAT 100; BMI 34.3
[2022-01-18 20:24] LABS: Hematocrit 36.7 % (37.0-47.0); Hemoglobin 10.9 g/dl (12.0-16.0); Mean Corpuscular HGB Conc 29.7 g/dl (31.0-35.0); Mean Corpuscular Hemoglobin 21.3 pg (27.0-33.0); Mean Corpuscular Volume 71.8 fL (80.0-98.0); Platelet Count 425 X10*3/uL (160-400); Red Blood Count 5.11 X10*6/uL (4.20-5.50); White Blood Count 10.1 X10*3/uL (4.8-10.8)
[2022-01-18 20:40] LABS: Alanine Aminotransferase 19 U/L (0-31); Albumin Level 4.3 g/dL (3.5-5.0); Alkaline Phosphatase 106 U/L (39-117); Anion Gap 13 (12-20); Aspartate Amino Transferase 15 U/L (5-31); Bilirubin Total 0.4 mg/dL (0.0-1.0); Blood Urea Nitrogen 9 mg/dL (9-16); Calcium 9.4 mg/dL (8.4-10.2); Carbon Dioxide 23 mmol/L (22-29); Chloride 106 mmol/L (96-108); Creatinine Clr Calc Pharmacy 125.5; Estimated Glomerular Filt Rate > 60; Glucose Random 82 mg/dL (60-115); Potassium 4.3 mmol/L (3.3-5.1); Sodium 138 mmol/L (135-145); Total Protein 8.6 g/dL (6.5-8.0)
[2022-01-18 21:32] VITALS: BP 108/71; PULSE 88; RESP 18; TEMP 37.8; O2SAT 100
--- NOTE | 2022-01-18 21:35 | ED_ITS ---
HPI - General Adult General Chief complaint: General Medical Stated complaint: upper and left side pain Time Seen by Provider: 01/18/22 16:05 Source: patient Mode of arrival: ambulatory Limitations: no limitations History of Present Illness HPI narrative: 21-year-old female who presents emergency department for evaluation of episodic abdominal pain x5 months lower back pain and urinary frequency. The patient is a , she is x5 months. She states that since giving 5 months prior she has been having episodic abdominal pain. She states that the pain comes on 2 to 3 times a week and she will get several episodes a day. She describes the pain as a cramping sensation and she points to her epigastric area when asked to localize the pain. The pain is associated with nausea and occasional vomiting. She does not think that it is associated with eating or the type of food that she is eating. She states that the pain will last 1-2 hours. The pain does not radiate to her back or to her shoulders. She states that after she experiences the pain she feels very fatigued. She states that she has tried Advil and Tylenol with some relief of the pain. She believes that she has lost some weight since being cannot qualify the amount of weight that she has lost. She also states that she has had intermittent lower back pain over the past 3 weeks but is not having this pain at this time. She states that over the past several days she has noted urinary frequency and the change in the color of her urine. She denies dysuria. She has noted chills but denied fever. Her last menstrual period was 5 months prior. She has the Nexplanon implant for control. Related Data Previous Rx's Medication Instructions Recorded nitrofurantoin 100 mg PO Q12H 7 days #14 caps 02/18/21 monohydrate/macrocrystals 100 mg capsule (Macrobid) metoclopramide HCl 5 mg tablet 5 mg PO DAILY PRN nausea and 06/02/21 (Reglan) vomiting #10 tabs sucralfate 1 gram tablet 1 g PO BID #14 tabs 06/02/21 cephalexin 500 mg capsule 500 mg PO TID 5 days #15 caps 01/19/22 famotidine 20 mg tablet (Pepcid) 20 mg PO DAILY 30 days #30 tabs 01/19/22 Allergies Allergy/AdvReac Type Severity Reaction Status Date / Time No Known Allergies Allergy Verified 06/02/21 01:16 Review of Systems Review of Systems: Yes all other systems are reviewed and are negative [facility] Past Medical History [facility] Narrative: Past medical history: , 5 months , asthma, GERD, COVID infection in the past. Past surgical history :the patient had a D&C after her miscarriage. Social history: She denies tobacco, alcohol and drug use. Medical History Asthma Social History Social History Alcohol intake: never Patient Tobacco Use Status: Never used Tobacco Use of substances other than those prescribed or required for medical reasons: No Advance Directives: No Advance Directives Information Provided: No Physical Exam ED Vital Signs: Vital Signs - 24 hr 01/18/22 15:44 01/18/22 21:32 Temperature 97.2 F 100.1 F Pulse Rate 93 88 Respiratory Rate 20 18 Blood Pressure 124/77 108/71 Pulse Oximetry 100 100 Oxygen Delivery Method Room Air Room Air BMI result Body Mass Index 34.3 Const General: cooperative and no acute distress Orientation/consciousness: oriented to person and oriented to place Limitations: no limitations HENMT Head: Yes normal to inspection, Yes normocephalic and Yes atraumatic Ears: external ears normal General nose exam: Normal external nose present Face and sinus: Yes normal facial exam Mouth: Normal oral and palatal mucosa present Throat: Yes posterior oropharynx normal Eyes General: appearance normal, both eyes and all related structures Pupils: Equal, round and reactive pupils present Neck Neck: Yes normal visual inspection, Yes no lymphadenopathy, Yes trachea midline and Yes supple Chest Chest palpation & inspection: normal inspection of the chest and normal palpation of entire chest wall Resp Effort & Inspection: normal respiratory effort and able to speak in complete sentences Auscultation: clear to auscultation bilaterally Cardio Rate: regular rate Rhythm: regular rhythm Heart sounds: S1 normal heart sound present, S2 normal heart sound present and no murmurs GI Inspection: Yes normal to inspection Palpation (GI): Soft to palpation, Tenderness to palpation present (GI) in the epigastrum ( Mild), in the RUQ ( moderate) and suprapubicly ( mild) and no guarding Auscultation: normal bowel sounds General: Yes no CVA tenderness Back/Spine/Pelvis Back: no CVA tenderness Skin General skin exam: no rashes or lesions noted Neuro General: oriented to person and oriented to place Cranial nerves: Yes CN's II-XII intact bilaterally and Yes Equal, round and reactive pupils present Cognition (Neuro): normal cognition Motor exam (neuro): 5/5 motor strength present throughout Extrem General: Yes normal to inspection Psych Appearance: grossly normal Speech and movement: Normal speech and movement present Affect: normal affect Attitude: cooperative Thought process: Normal thought process present Thought content: Normal thought content present Course Course Course Narrative: 21-year-old female who presents emergency department for evaluation episodic epigastric pain x5 months associated with nausea and vomiting with her last episode 2 days prior. Patient has associated nausea and vomiting at this time with epigastric pain. She also is noted urinary frequency and a change in the color of her urine. Vital signs were normal. Examination did reveal right upper quadrant tenderness and epigastric tenderness. Laboratory evaluation revealed a normal H&H with a low MCV of 71 (this is chronic) and normal CMP and lipase. Urine test was negative. Urinalysis revealed 3+ blood and 3+ leukocyte esterase. Microscopic revealed 4 RBCs, 29 WBCs, 3+ bacteria and positive squamous cells. Right upper quadrant ultrasound did reveal cholelithiasis with no evidence for cholecystitis. Patient was started on Keflex 500 mg 3 times a day for 5 days for urinary tract infection. She was started on Pepcid 20 mg once a day for 1 monthfor her epigastric pain. The patient will be referred to the on-call surgeon , Dr. Almendarez for evaluation of possible biliary colic as the cause of her pain. She was given printed and verbal instructions and discharged home. Medical Decision Making Lab Data Result diagrams: 01/18/22 20:16 01/18/22 20:16 Labs: Lab Results 01/18/22 01/18/22 01/18/22 Range/Units 20:16 20:16 22:49 WBC 10.1 (4.8-10.8) X10*3/uL RBC 5.11 (4.20-5.50) X10*6/uL Hgb 10.9 L (12.0-16.0) g/dl Hct 36.7 L (37.0-47.0) % MCV 71.8 L (80.0-98.0) fL MCH 21.3 L (27.0-33.0) pg MCHC 29.7 L (31.0-35.0) g/dl RDW 15.0 (11.0-16.0) % Plt Count 425 H (160-400) X10*3/uL MPV 9.0 L (9.4-12.3) fL Absolute Nucleated RBC 0.000 (0.0-0.012) X10*3/uL Nucleated RBC % (auto) 0.0 (0.0-0.2) /100WBC Sodium 138 (135-145) mmol/L Potassium 4.3 (3.3-5.1) mmol/L Chloride 106 (96-108) mmol/L Carbon Dioxide 23 (22-29) mmol/L Anion Gap 13 (12-20) BUN 9 (9-16) mg/dL Creatinine 0.78 (0.5-1.4) mg/dL Estim Creat Clear Calc 125.5 Estimated GFR > 60 Random Glucose 82 (60-115) mg/dL Calcium 9.4 (8.4-10.2) mg/dL Total Bilirubin 0.4 (0.0-1.0) mg/dL AST 15 D (5-31) U/L ALT 19 (0-31) U/L Alkaline Phosphatase 106 (39-117) U/L Total Protein 8.6 H D (6.5-8.0) g/dL Albumin 4.3 D (3.5-5.0) g/dL Lipase 11 (8-78) U/L Urine Color DK YELLOW Urine Appearance CLOUDY Urine pH 6.0 (5.0-8.0) Ur Specific [place] 1.025 (1.005-1.025) Urine Protein 1+ H (NEG-TRACE) MG/DL Urine Glucose (UA) NEG (NEG) MG/DL Urine Ketones NEG (NEG) MG/DL Urine Blood 3+ H (NEG) Urine Nitrite NEG (NEG) Ur Leukocyte Esterase 3+ H (NEG) Urine RBC 1-4 (0) /HPF Urine WBC 15-29 H (0-4) /HPF Ur Squamous Epith Cells 1+ /LPF Urine Bacteria 3+ /LPF Urine Mucus 3+ /LPF Urine Test (NEGATIVE) 01/18/22 Range/Units 22:49 WBC (4.8-10.8) X10*3/uL RBC (4.20-5.50) X10*6/uL Hgb (12.0-16.0) g/dl Hct (37.0-47.0) % MCV (80.0-98.0) fL MCH (27.0-33.0) pg MCHC (31.0-35.0) g/dl RDW (11.0-16.0) % Plt Count (160-400) X10*3/uL MPV (9.4-12.3) fL Absolute Nucleated RBC (0.0-0.012) X10*3/uL Nucleated RBC % (auto) (0.0-0.2) /100WBC Sodium (135-145) mmol/L Potassium (3.3-5.1) mmol/L Chloride (96-108) mmol/L Carbon Dioxide (22-29) mmol/L Anion Gap (12-20) BUN (9-16) mg/dL Creatinine (0.5-1.4) mg/dL Estim Creat Clear Calc Estimated GFR Random Glucose (60-115) mg/dL Calcium (8.4-10.2) mg/dL Total Bilirubin (0.0-1.0) mg/dL AST (5-31) U/L ALT (0-31) U/L Alkaline Phosphatase (39-117) U/L Total Protein (6.5-8.0) g/dL Albumin (3.5-5.0) g/dL Lipase (8-78) U/L Urine Color Urine Appearance Urine pH (5.0-8.0) Ur Specific [place] (1.005-1.025) Urine Protein (NEG-TRACE) MG/DL Urine Glucose (UA) (NEG) MG/DL Urine Ketones (NEG) MG/DL Urine Blood (NEG) Urine Nitrite (NEG) Ur Leukocyte Esterase (NEG) Urine RBC (0) /HPF Urine WBC (0-4) /HPF Ur Squamous Epith Cells /LPF Urine Bacteria /LPF Urine Mucus /LPF Urine Test NEGATIVE (NEGATIVE) Discharge Plan Discharge Clinical Impression: Abdominal pain, UTI (urinary tract infection), Gastritis, Gallstones Patient Disposition: Home, Self-Care Instructions: Gastritis (ED), Gallstones (ED), Urinary Tract Infection in Women (ED) Prescriptions: New cephalexin 500 mg capsule 500 mg PO TID 5 Days Qty: 15 0RF famotidine [Pepcid] 20 mg tablet 20 mg PO DAILY 30 Days Qty: 30 0RF No Action nitrofurantoin monohyd/m-cryst [Macrobid] 100 mg capsule 100 mg PO Q12H 7 Days Qty: 14 0RF Rx Instructions: must administer with a meal/food sucralfate 1 gram tablet 1 g PO BID Qty: 14 0RF metoclopramide HCl [Reglan] 5 mg tablet 5 mg PO DAILY PRN (Reason: nausea and vomiting) Qty: 10 0RF Referrals: Giana Almendarez MD [Physician] - 2 weeks ( epigastric, right upper quadrant pain, normal labs, multiple small gallstones noted on ultrasound with no evidence for cholecystitis. x5 months.)
[2022-01-18 22:33] LABS: Lipase 11 U/L (8-78)
[2022-01-18 23:04] LABS: Appearance Urine CLOUDY; Color Urine DK YELLOW; Glucose Urine UA NEG (NEG); Leukocyte Esterase Urine 3+ (NEG); Nitrite Urine NEG (NEG); Specific Gravity - Urine 1.025 (1.005-1.025); UACC Culture Trigger YES; Urine Blood 3+ (NEG); Urine Ketones NEG (NEG); Urine Protein 1+ MG/DL (NEG-TRACE)
[2022-01-18 23:06] LABS: UPreg QC Valid YES; Urine Pregnancy NEGATIVE (NEGATIVE)
[2022-01-18 23:35] LABS: Bacteria Urine 3+ /LPF; Mucus Urine 3+ /LPF; Squamous Epithelial Cell Urine 1+ /LPF
[2022-01-19] MEDS: cephALEXin 500 MG CAPSULE PO (00:16)
== END 2022-01-19 00:22 | disposition home or self-care (01) ==
PROVIDERS: Emergency Provider Emergency Medicine Emergency Medical Services
DX: K29.70 Gastritis, unspecified, without bleeding (principal); K80.80 Other cholelithiasis without obstruction; R10.11 Right upper quadrant pain; N39.0 Urinary tract infection, site not specified; Z79.899 Other long term (current) drug therapy
CPT/HCPCS: 36415; 76705; 80053; 81001; 81003; 81025; 83690; 85027; 87086; 87088; 87186; 99284

== ENCOUNTER 2024-01-22 07:47 | Emergency (ER) | payer MEDICAID, SELFPAY ==
--- NOTE | ~2024-01-22 | XR_ITS ---
EXAMINATION: XR CHEST CLINICAL INFORMATION: Pain COMPARISON: 06/15/2019 TECHNIQUE: Frontal view of the chest was obtained. FINDINGS: No significant abnormality is noted involving the heart, lungs, mediastinum, bony thorax or soft tissues. XR/XR chest 1V IMPRESSION: Unremarkable examination.
[2024-01-22 07:48] VITALS: BP 125/96; PULSE 100; PULSE 99; RESP 20; TEMP 37.1; O2SAT 98; BMI 45.5
--- NOTE | 2024-01-22 07:54 | ECG_ITS ---
Test Reason : cp Blood Pressure : / mmHG Vent. Rate : 102 BPM Atrial Rate : 102 BPM P-R Int : 142 ms QRS Dur : 080 ms QT Int : 352 ms P-R-T Axes : 046 035 026 degrees QTc Int : 458 ms Sinus tachycardia Otherwise normal ECG No previous ECGs available Referred By: Migdalia De Leon Electronically Signed By:MARISSA LOVE MD
--- NOTE | 2024-01-22 08:01 | ED_ITS ---
HPI - Chest Pain General Chief Complaint: Chest Pain Stated Complaint: CP,DIZZY,RESOLVED PER EMS Source: patient and old records reviewed Mode of arrival: EMS Limitations: no limitations History of Present Illness ED Provider: DIMA BAIG narrative: 23 yo female with PMH of GERD was laying on her stomach this AM on her phone when she felt palpitations and sharp chest pain on L side then she started to panic. She felt very anxious and both of her hands went tingly. She notes 2 more episodes happened [employer] and when she tried to get up she felt like she was going to pass out. She did have recent URI and vomited yesterday but felt better this AM. She has nexplanon. No travel or recent procedures. MD complaint: chest pain Onset (ago): hour(s) (1) Timing of current episode: episodic Prior episodes: No Onset: during rest Pain location: left chest Pain radiation: none Severity: moderate Quality: sharp Relieving factors: nothing Exacerbating factors: nothing Context: recent illness Associated symptoms: palpitations Treatment prior to arrival: none Related Data Previous Rx's ?Medication ?Instructions ?Recorded nitrofurantoin 100 mg PO Q12H 7 days #14 caps 02/18/21 monohydrate/macrocrystals 100 mg capsule (Macrobid) metoclopramide HCl 5 mg tablet 5 mg PO DAILY PRN nausea and 06/02/21 (Reglan) vomiting #10 tabs sucralfate 1 gram tablet 1 g PO BID #14 tabs 06/02/21 cephalexin 500 mg capsule 500 mg PO TID 5 days #15 caps 01/19/22 famotidine 20 mg tablet (Pepcid) 20 mg PO DAILY 30 days #30 tabs 01/19/22 Allergies Allergy/AdvReac Type Severity Reaction Status Date / Time No Known Allergies Allergy Verified 01/22/24 07:54 Review of Systems 2 Review of Systems: Constitutional : No Weight loss, No Fever, No Chills ENT/Mouth : No sore throat, No Rhinorrhea Eyes: No Eye Pain, No Swelling Cardiovascular : pos Chest Pain, pos SOB, no Dyspnea on Exertion, No Orthopnea, No Edema, pos Palpitations Respiratory : No Cough, No Sputum Gastrointestinal : no Nausea, No Vomiting, No Diarrhea, No abdominal Pain, No Hematochezia, No Melena Genitourinary : No Dysuria, No Urinary Frequency Musculoskeletal : No joint pain, No Myalgias, No Joint Swelling Skin : No Skin Lesions, No rash Neuro : No Weakness, No Numbness, No Dizziness, No Headache Psych : pos Anxiety/Panic, No Depression All other systems reviewed and are negative [facility] Past Medical History Attestation statement: The following information was validated with the patient. Source: old records reviewed Medical History GERD (gastroesophageal reflux disease) Asthma Social History Social History Alcohol intake: never Patient Tobacco Use Status: Never used Tobacco Smoked in Last 30 Days: No Use of substances other than those prescribed or required for medical reasons: No Advance Directives: No Advance Directives Information Provided: No Physical Exam 2 Vital Signs: Vital Signs: Last Vital Signs Temp 98.8 F 01/22/24 07:48 Pulse 88 01/22/24 10:10 Resp 18 01/22/24 10:10 BP 127/62 01/22/24 10:10 Pulse Ox 98 01/22/24 10:10 O2 Del Method Room Air 01/22/24 10:10 BMI result Body Mass Index 45.5 Appearance: Alert. Oriented X3. No acute distress. anxious Eyes: Pupils equal, round and reactive to light. ENT: Pharynx normal. Neck: Normal inspection. Neck supple. CVS: tachycardic heart rate and rhythm. Pulses normal. Respiratory: No respiratory distress. Breath sounds normal. Abdomen: Soft and non-tender. Skin: Skin warm and dry. Normal skin color. Normal skin turgor. Extremities: No lower extremity edema. No calf ttp Neuro: Oriented X 3. No motor deficit. No sensory deficit. Medical Decision Making Medical Decision Making [facility] Narrative: 23 yo female with PMH of GERD here with c/o having L sided sharp chest pain on nexplanon and recent URI at this time will obtain labs, troponin, EKG, ddimer - low susp for ACS, could be pleurisy, VTE, she is very anxious. Distal pulses intact doubt dissection. Differential Diagnosis Differential Diagnoses: The differential diagnosis associated with the presentation includes atypical chest pain URI bronchitis pneumonia VTE no signs of pericarditis on EKG Admission/Observation Consideration of admission/observation: Escalation of care including admission/observation considered negative EKG, trop and CXR ddimer negative stable for DC Lab Data MDM Lab Attestation statement: I reviewed the patient's lab results. 01/22/24 08:02 01/22/24 08:20 Labs: Lab Results 01/22/24 01/22/24 01/22/24 Range/Units 08:02 08:20 10:21 WBC 11.2 H (4.8-10.8) X10*3/uL RBC 5.19 (4.20-5.50) X10*6/uL Hgb 12.6 (12.0-16.0) g/dl Hct 40.1 (37.0-47.0) % MCV 77.3 L (80.0-98.0) fL MCH 24.3 L (27.0-33.0) pg MCHC 31.4 (31.0-35.0) g/dl RDW 14.2 (11.0-16.0) % Plt Count 365 (160-400) X10*3/uL MPV 8.8 L (9.4-12.3) fL Immature Gran % (Auto) 0.3 (0.0-0.4) % Neut % (Auto) 55.6 (45-73) % Lymph % (Auto) 30.6 (20-40) % [place] % (Auto) 8.1 (2-11) % Eos % (Auto) 5.2 H (0-4) % Baso % (Auto) 0.2 (0-2) % Lymph # (Auto) 3.4 (1.2-4.9) X10*3/uL [place] # (Auto) 0.9 (0.1-1.2) X10*3/uL Eos # (Auto) 0.6 H (0.0-0.4) X10*3/uL Baso # (Auto) 0.0 (0.0-0.2) X10*3/uL Abs Immat Gran (auto) 0.03 (0.00-0.03) X10*3/uL Absolute Neuts (auto) 6.3 (2.0-8.3) x10*3/uL Absolute Nucleated RBC 0.000 (0.0-0.012) X10*3/uL Nucleated RBC % (auto) 0.0 (0.0-0.2) /100WBC D-Dimer High Sensitivty < 150 NG/ML Sodium 140 (135-145) mmol/L Potassium 3.4 (3.3-5.1) mmol/L Chloride 109 H (96-108) mmol/L Carbon Dioxide 25 (22-29) mmol/L Anion Gap 9 L (12-20) BUN 10 (9-16) mg/dL Creatinine 0.73 (0.5-1.4) mg/dL Estim Creat Clear Calc 159.9 Estimated GFR > 60 Random Glucose 115 (60-115) mg/dL Calcium 9.4 (8.4-10.2) mg/dL Magnesium 2.0 (1.6-2.6) mg/dL Total Bilirubin 0.2 (0.0-1.0) mg/dL Direct Bilirubin < 0.2 (0.0-0.5) mg/dL AST 14 (5-31) U/L ALT 13 (0-31) U/L Alkaline Phosphatase 96 (39-117) U/L Troponin I High Sens < 2.7 < 2.7 (<3.5-17.0) ng/L Total Protein 7.8 (6.5-8.0) g/dL Albumin 3.8 (3.5-5.0) g/dL Beta HCG, Quant < 2 mIU/mL Influenza Type A (PCR) NEGATIVE (Negative) Influenza Type B (PCR) NEGATIVE (Negative) RSV RNA Qual (PCR) NEGATIVE (Negative) SARS-CoV-2 RNA (RT-PCR) NEGATIVE (Negative) Independent Interpretation I performed an independent interpretation of an: EKG and Plain X-Ray (normal ) Interpretation: Rate: 102 Rhythm: sinus tachycardia [place]: normal Normal P waves. Normal EDILMA. Normal QRS complex. ST T wave : normal no SAULO, inverted t wave V1 qTC: 458 prior studies: no acute ischemia The study has been interpreted contemporaneously by me. . Radiology Impression Discussion of test interpretation with radiology: I have reviewed the radiologist's reading. Independent Historian Clinical information obtained from an independent historian. History obtained from or confirmed by: EMS External Record Review External record reviewed: Inpatient record Discharge Plan Discharge Clinical Impression: Atypical chest pain Patient Disposition: Home, Self-Care Instructions: Chest Pain (ED) Additional Instructions: reassuring EKG, chest xray, negative heart markers x 2 and negative blood clot test negative viral panel Prescriptions: No Action nitrofurantoin monohyd/m-cryst [Macrobid] 100 mg capsule 100 mg PO Q12H 7 Days Qty: 14 0RF Rx Instructions: must administer with a meal/food cephalexin 500 mg capsule 500 mg PO TID 5 Days Qty: 15 0RF famotidine [Pepcid] 20 mg tablet 20 mg PO DAILY 30 Days Qty: 30 0RF sucralfate 1 gram tablet 1 g PO BID Qty: 14 0RF metoclopramide HCl [Reglan] 5 mg tablet 5 mg PO DAILY PRN (Reason: nausea and vomiting) Qty: 10 0RF Print Language: Estonian
[2024-01-22 08:07] LABS: MANUAL DIFF FLAG NO
[2024-01-22 08:11] LABS: Basophils Percent Auto 0.2 % (0-2); Eosinophils Absolute Auto 0.6 X10*3/uL (0.0-0.4); Eosinophils Percent Auto 5.2 % (0-4); Hematocrit 40.1 % (37.0-47.0); Hemoglobin 12.6 g/dl (12.0-16.0); Imm Gran Abs Auto 0.03 X10*3/uL (0.00-0.03); Imm Gran Pct Auto 0.3 % (0.0-0.4); Lymphocytes Absolute Auto 3.4 X10*3/uL (1.2-4.9); Lymphocytes Percent Auto 30.6 % (20-40); Mean Corpuscular HGB Conc 31.4 g/dl (31.0-35.0); Mean Corpuscular Hemoglobin 24.3 pg (27.0-33.0); Mean Corpuscular Volume 77.3 fL (80.0-98.0); Mean Platelet Volume 8.8 fL (9.4-12.3); Monocytes Absolute Auto 0.9 X10*3/uL (0.1-1.2); Monocytes Percent Auto 8.1 % (2-11); Neutrophils Absolute Auto 6.3 x10*3/uL (2.0-8.3); Neutrophils Percent Auto 55.6 % (45-73); Platelet Count 365 X10*3/uL (160-400); Red Blood Count 5.19 X10*6/uL (4.20-5.50); Red Cell Distribution Width 14.2 % (11.0-16.0); White Blood Count 11.2 X10*3/uL (4.8-10.8)
[2024-01-22 08:20] LABS: D Dimer High Sensitivity < 150 NG/ML
[2024-01-22 09:00] LABS: Influenza A PCR NEGATIVE (Negative); Influenza B PCR NEGATIVE (Negative); Resp Syncy Virus RNA Qual PCR NEGATIVE (Negative); SARS COV2 PCR INHOUSE NEGATIVE (Negative)
[2024-01-22 09:02] LABS: Alanine Aminotransferase 13 U/L (0-31); Albumin Level 3.8 g/dL (3.5-5.0); Alkaline Phosphatase 96 U/L (39-117); Anion Gap 9 (12-20); Aspartate Amino Transferase 14 U/L (5-31); Bilirubin Direct < 0.2 mg/dL (0.0-0.5); Bilirubin Total 0.2 mg/dL (0.0-1.0); Blood Urea Nitrogen 10 mg/dL (9-16); Calcium 9.4 mg/dL (8.4-10.2); Carbon Dioxide 25 mmol/L (22-29); Chloride 109 mmol/L (96-108); Creatinine Clr Calc Pharmacy 159.9; Estimated Glomerular Filt Rate > 60; Glucose Random 115 mg/dL (60-115); HCG Quantitative < 2 mIU/mL; Potassium 3.4 mmol/L (3.3-5.1); Sodium 140 mmol/L (135-145); Total Protein 7.8 g/dL (6.5-8.0); Troponin-I High Sensitivity < 2.7 ng/L (<3.5-17.0)
[2024-01-22 10:10] VITALS: BP 127/62; PULSE 88; RESP 18; O2SAT 98
[2024-01-22 10:53] LABS: Troponin-I High Sensitivity < 2.7 ng/L (<3.5-17.0)
[2024-01-22 11:03] VITALS: BP 127/62; PULSE 88; RESP 18; TEMP 37.1; O2SAT 98
== END 2024-01-22 11:04 | disposition home or self-care (01) ==
PROVIDERS: Emergency Provider Emergency Medicine
DX: R07.89 Other chest pain (principal); R42 Dizziness and giddiness; F41.1 Generalized anxiety disorder; F43.0 Acute stress reaction; R11.10 Vomiting, unspecified; R00.2 Palpitations; Z03.818 Encounter for observation for suspected exposure to other biological agents ruled out; Z79.899 Other long term (current) drug therapy
CPT/HCPCS: 0241U; 36415; 71045; 80048; 80076; 83735; 84484; 84702; 85025; 85379; 93005; 99283; 99284

== ENCOUNTER → 2024-01-22 07:54 | Outpatient (BNV) | payer MEDICAID, SELFPAY | PROVIDERS: Emergency Provider Emergency Medicine; Visit Provider Internal Medicine Cardiovascular Disease | DX: R07.9 Chest pain, unspecified (principal) | CPT/HCPCS: 93010 ==

== ENCOUNTER 2024-06-27 13:01 | Emergency (ER) | payer MEDICAID, SELFPAY ==
--- NOTE | ~2024-06-27 | US_ITS ---
EXAMINATION: Renal ultrasound. CLINICAL INFORMATION: Left-sided back pain.. COMPARISON: Renal ultrasound dated February 22, 2020. TECHNIQUE: A focused sonogram of the left kidney was performed. FINDINGS: LEFT KIDNEY: 11.9 x 5.9 x 5.4 cm (SAG x AP x TRV). The kidney is normal in size, contour, and echogenicity. Renal cortical thickness is normal. No calculi or focal parenchymal lesions. No hydronephrosis. US/US renal LT IMPRESSION: Normal left renal ultrasound. Electronically signed by: Darrian Locke DO 06/27/2024 03:55 PM EST
[2024-06-27 13:48] VITALS: BP 138/69; PULSE 81; RESP 16; TEMP 36.6; O2SAT 100; BMI 47.7
--- NOTE | 2024-06-27 13:48 | ED_ITS ---
HPI - General Adult General Chief complaint: Back Pain/Injury Stated complaint: L Side Low Back Pain Time Seen by Provider: 06/27/24 20:34 History of Present Illness ED Provider: Lisa BAIG narrative: The patient is a 23-year-old woman who says that she has had some dark and malodorous urine for several days or perhaps a couple of weeks. Today she had some pain in her left flank area that made her think she might be having a kidney infection and so she came to the emergency room. She has not had a fever, sweats, chills. No nausea or vomiting. Related Data Previous Rx's ?Medication ?Instructions ?Recorded nitrofurantoin 100 mg PO Q12H 7 days #14 caps 02/18/21 monohydrate/macrocrystals 100 mg capsule (Macrobid) metoclopramide HCl 5 mg tablet 5 mg PO DAILY PRN nausea and 06/02/21 (Reglan) vomiting #10 tabs sucralfate 1 gram tablet 1 g PO BID #14 tabs 06/02/21 cephalexin 500 mg capsule 500 mg PO TID 5 days #15 caps 01/19/22 famotidine 20 mg tablet (Pepcid) 20 mg PO DAILY 30 days #30 tabs 01/19/22 ibuprofen 400 mg tablet 400 mg PO Q6H PRN pain #14 tabs 06/27/24 sulfamethoxazole 800 1 tab PO BID #14 tabs 06/27/24 mg-trimethoprim 160 mg tablet (Bactrim DS) Allergies Allergy/AdvReac Type Severity Reaction Status Date / Time No Known Allergies Allergy Verified 06/27/24 13:50 Review of Systems 2 Review of Systems: Yes all other systems are reviewed and are negative [facility] Past Medical History Medical History GERD (gastroesophageal reflux disease) Asthma Social History Social History Alcohol intake: never Patient Tobacco Use Status: Never used Tobacco Advance Directives: No Advance Directives Information Provided: No Physical Exam ED Vital Signs: Vital Signs - 24 hr 06/27/24 13:48 06/27/24 18:33 Temperature 97.9 F 97.8 F Pulse Rate 81 90 Respiratory Rate 16 16 Blood Pressure 138/69 159/81 H Pulse Oximetry 100 100 Oxygen Delivery Method Room Air Room Air BMI result Body Mass Index 47.7 Const Other: The patient is awake and alert. She is pleasant and cooperative. She does not appear toxic or in distress at all. She seems to be moving around easily. HENMT Head: Yes normal to inspection Face and sinus: Yes normal facial exam Mouth: Normal oral and palatal mucosa present and moist mucous membranes Eyes General: appearance normal, both eyes and all related structures Neck Neck: Yes full ROM Resp Effort & Inspection: normal respiratory effort Auscultation: clear to auscultation bilaterally Cardio Rate: regular rate Rhythm: regular rhythm Heart sounds: S1 normal heart sound present and S2 normal heart sound present GI Other: Some mild left-sided abdominal tenderness mostly in the left lower quadrant. No rebound or guarding. Back/Spine/Pelvis Other: Possibly some mild left-sided CVA percussion tenderness. Skin Other: Skin is dry and unremarkable Neuro Other: The patient is awake and alert with a normal mental status. Her demeanor is very benign. Cranial nerves are grossly intact. She moves her extremities normally and easily. Extrem Other: No peripheral edema Course Course Course Narrative: This is an RME: Additional HPI, ROS, PE not included below will be deferred to primary provider. RME assessment and note performed by: Shyanne Jennings PA-C This is a [id number]-female who presents to the ER with a complaints of back pain x 3 days. Reports that she has had dark urine, foul smelling urine for that last 3 months. No recent injury or trauma to her back. Reports that she was taking motrin without relief. Plan: Labs, UA Pt's upreg is positive, quant is neg, d/w Dr. Rogers, will obtain repeat upreg and hcg quant. Medical Decision Making Medical Decision Making MDM Narrative: The patient is a 23-year-old female presents for evaluation of left flank pain. She also says that she has had dark and malodorous urine although she does not seem to have dysuria, urgency, or frequency. Labs has been ordered at triage and also an ultrasound of the left kidney. The ultrasound of the left kidney is negative. Labs show a normal white count and differential. Urinalysis shows small blood, moderate leukocyte esterase, 11-20 red cells, and 21-50 white cells. Also 4+ bacteria. The patient had initially had a urine test that was ordered that came back positive. This was a surprise because the patient has an implanted Nexplanon device. A serum HCG was then done which was less than 2. A repeat urine test was done that was negative. My conclusion is that the patient is not . I think the patient probably has a urinary tract infection and should be on antibiotics. I do not have a terribly high suspicion for pyelonephritis. The patient really looks clinically very well. Nevertheless I will give her a 7 day course of sulfamethoxazole/trimethoprim. The patient has lived in this area in the past but moved to [place] for awhile and recently relocated in this area. She has not yet re-established a primary care doctor. She has a [employer]. She is encouraged to contact her insurance company for assistance in getting a PCP. 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 She will be given a work note to return to work on Sunday. Lab Data 06/27/24 14:30 06/27/24 14:30 Labs: Lab Results 06/27/24 06/27/24 Range/Units 14:30 19:06 WBC 7.3 (4.8-10.8) X10*3/uL RBC 5.42 (4.20-5.50) X10*6/uL Hgb 13.3 (12.0-16.0) g/dl Hct 43.5 (37.0-47.0) % MCV 80.3 (80.0-98.0) fL MCH 24.5 L (27.0-33.0) pg MCHC 30.6 L (31.0-35.0) g/dl RDW 14.3 (11.0-16.0) % Plt Count 323 (160-400) X10*3/uL MPV 9.2 L (9.4-12.3) fL Immature Gran % (Auto) 0.4 (0.0-0.4) % Neut % (Auto) 66.5 (45-73) % Lymph % (Auto) 25.1 (20-40) % Blair % (Auto) 5.8 (2-11) % Eos % (Auto) 1.9 (0-4) % Baso % (Auto) 0.3 (0-2) % Lymph # (Auto) 1.8 (1.2-4.9) X10*3/uL Blair # (Auto) 0.4 (0.1-1.2) X10*3/uL Eos # (Auto) 0.1 (0.0-0.4) X10*3/uL Baso # (Auto) 0.0 (0.0-0.2) X10*3/uL Abs Immat Gran (auto) 0.03 (0.00-0.03) X10*3/uL Absolute Neuts (auto) 4.8 (2.0-8.3) x10*3/uL Absolute Nucleated RBC 0.000 (0.0-0.012) X10*3/uL Nucleated RBC % (auto) 0.0 (0.0-0.2) /100WBC Sodium 137 (135-145) mmol/L Potassium 4.1 D (3.3-5.1) mmol/L Chloride 109 H (96-108) mmol/L Carbon Dioxide 20 L (22-29) mmol/L Anion Gap 12 (12-20) BUN 7 L (9-16) mg/dL Creatinine 0.68 (0.5-1.4) mg/dL Estim Creat Clear Calc 170.5 Estimated GFR > 60 Random Glucose 78 (60-115) mg/dL Calcium 9.1 (8.4-10.2) mg/dL Total Bilirubin 0.3 (0.0-1.0) mg/dL Direct Bilirubin 0.1 (0.0-0.5) mg/dL AST 22 (5-31) U/L ALT 19 (0-31) U/L Alkaline Phosphatase 110 (39-117) U/L Total Protein 8.3 H (6.5-8.0) g/dL Albumin 4.2 (3.5-5.0) g/dL Beta HCG, Quant < 2 mIU/mL Urine Color Yellow Urine Appearance Turbid Urine pH 8.5 (5.0-9.0) Ur Specific [place] 1.015 (1.005-1.025) Urine Protein Negative (Neg-Trace) mg/dL Urine Glucose (UA) Negative (Negative) mg/dL Urine Ketones Negative (Negative) mg/dL Urine Blood Small (1+) H (Negative) Urine Nitrite Negative (Negative) Ur Leukocyte Esterase Moderate (2+) H (Negative) Urine RBC 11-20 H (0-2) /HPF Urine WBC 21-50 H (0-5) /HPF Ur Squamous Epith Cells 3-5 (0-2) /HPF Urine Bacteria 4+ (None Seen) Hyaline Casts 0-2 (0-2) /LPF Urine Test POSITIVE H NEGATIVE (NEGATIVE) Discharge Plan Discharge Clinical Impression: Urinary tract infection, Left flank pain Patient Disposition: Home, Self-Care Instructions: Urinary Tract Infection in Women (ED) Additional Instructions: Your urine testing today suggests that you have urinary tract infection. You have therefore been started on antibiotic. The antibiotic is called sulfamethoxazole/trimethoprim (also known as Bactrim). Please take this medication 2 times a day. I do not have a very high suspicion that the urinary tract infection is affecting your left kidney. Your blood testing does not suggest that. Nevertheless I have given a slightly longer course of antibiotics then I would ordinarily prescribed for a simple urinary tract infection. Please take the entire course of 7 days. Drink lot of fluids. You may use ibuprofen and acetaminophen as needed for discomfort. Please work on getting a new primary care doctor now that you have moved back to this area. Contact your insurance for advice about which practice you might be assigned to. If at any point you develop a fever, vomiting, or worsening pain, please return to the emergency department. Prescriptions: New sulfamethoxazole-trimethoprim [Bactrim DS] 800-160 mg tablet 1 tab PO BID Qty: 14 0RF ibuprofen 400 mg tablet 400 mg PO Q6H PRN (Reason: pain) Qty: 14 0RF No Action nitrofurantoin monohyd/m-cryst [Macrobid] 100 mg capsule 100 mg PO Q12H 7 Days Qty: 14 0RF Rx Instructions: must administer with a meal/food cephalexin 500 mg capsule 500 mg PO TID 5 Days Qty: 15 0RF famotidine [Pepcid] 20 mg tablet 20 mg PO DAILY 30 Days Qty: 30 0RF sucralfate 1 gram tablet 1 g PO BID Qty: 14 0RF metoclopramide HCl [Reglan] 5 mg tablet 5 mg PO DAILY PRN (Reason: nausea and vomiting) Qty: 10 0RF Print Language: Citizen Of [place]
[2024-06-27 14:34] LABS: MANUAL DIFF FLAG NO
[2024-06-27 14:42] LABS: Basophils Percent Auto 0.3 % (0-2); Eosinophils Absolute Auto 0.1 X10*3/uL (0.0-0.4); Eosinophils Percent Auto 1.9 % (0-4); Hematocrit 43.5 % (37.0-47.0); Hemoglobin 13.3 g/dl (12.0-16.0); Imm Gran Abs Auto 0.03 X10*3/uL (0.00-0.03); Imm Gran Pct Auto 0.4 % (0.0-0.4); Lymphocytes Absolute Auto 1.8 X10*3/uL (1.2-4.9); Lymphocytes Percent Auto 25.1 % (20-40); Mean Corpuscular HGB Conc 30.6 g/dl (31.0-35.0); Mean Corpuscular Hemoglobin 24.5 pg (27.0-33.0); Mean Corpuscular Volume 80.3 fL (80.0-98.0); Mean Platelet Volume 9.2 fL (9.4-12.3); Monocytes Absolute Auto 0.4 X10*3/uL (0.1-1.2); Monocytes Percent Auto 5.8 % (2-11); Neutrophils Absolute Auto 4.8 x10*3/uL (2.0-8.3); Neutrophils Percent Auto 66.5 % (45-73); Platelet Count 323 X10*3/uL (160-400); Red Blood Count 5.42 X10*6/uL (4.20-5.50); Red Cell Distribution Width 14.3 % (11.0-16.0); White Blood Count 7.3 X10*3/uL (4.8-10.8)
[2024-06-27 14:47] LABS: UPreg QC Valid YES; Urine Pregnancy POSITIVE (NEGATIVE)
[2024-06-27 14:48] LABS: Appearance Urine Turbid; Color Urine Yellow; Glucose Urine UA Negative (Negative); Leukocyte Esterase Urine Moderate (2+) (Negative); Nitrite Urine Negative (Negative); PH 8.5 (5.0-9.0); Specific Gravity - Urine 1.015 (1.005-1.025); UMIC TRIGGER UACC YES; Urine Blood Small (1+) (Negative); Urine Ketones Negative (Negative); Urine Protein Negative (Neg-Trace)
[2024-06-27 14:53] LABS: Bacteria Urine 4+ (None Seen); Hyaline Casts Urine 0-2 /LPF (0-2); UACC Culture Trigger YES; WBC Urine 21-50 /HPF (0-5)
[2024-06-27 14:55] LABS: Alanine Aminotransferase 19 U/L (0-31); Albumin Level 4.2 g/dL (3.5-5.0); Alkaline Phosphatase 110 U/L (39-117); Anion Gap 12 (12-20); Aspartate Amino Transferase 22 U/L (5-31); Bilirubin Direct 0.1 mg/dL (0.0-0.5); Bilirubin Total 0.3 mg/dL (0.0-1.0); Blood Urea Nitrogen 7 mg/dL (9-16); Calcium 9.1 mg/dL (8.4-10.2); Carbon Dioxide 20 mmol/L (22-29); Chloride 109 mmol/L (96-108); Creatinine Clr Calc Pharmacy 170.5; Estimated Glomerular Filt Rate > 60; Glucose Random 78 mg/dL (60-115); Potassium 4.1 mmol/L (3.3-5.1); Sodium 137 mmol/L (135-145); Total Protein 8.3 g/dL (6.5-8.0)
[2024-06-27 16:13] LABS: HCG Quantitative < 2 mIU/mL
[2024-06-27 18:33] VITALS: BP 159/81; PULSE 90; RESP 16; TEMP 36.6; O2SAT 100
[2024-06-27 20:23] LABS: UPreg QC Valid YES; Urine Pregnancy NEGATIVE (NEGATIVE)
[2024-06-27] MEDS: Sulfamethox/Trimeth 800/160 TABLET 1 TAB PO (21:01)
[2024-06-27] MEDS: Ketorolac Tromethamine 30 MG/ML VIAL IM (21:01)
[2024-06-27 21:06] VITALS: BP 140/77; PULSE 86; RESP 16; TEMP 36.7; O2SAT 100
== END 2024-06-27 21:08 | disposition home or self-care (01) ==
PROVIDERS: Physician Assistant Medical; Emergency Provider Emergency Medicine
DX: N39.0 Urinary tract infection, site not specified (principal); R10.2 Pelvic and perineal pain; Z79.899 Other long term (current) drug therapy
CPT/HCPCS: 36415; 76775; 80048; 80076; 81001; 81025; 84702; 85025; 87086; 87088; 87186; 96372; 99284; J1885

== ENCOUNTER 2025-02-25 10:01 | Outpatient (REF) | payer MEDICAID, SELFPAY ==
--- OUTSIDE RECORDS SUMMARY | 2025-02-25 10:50 | XMS_ITS | Encounter Summary ---
Author Organization [employer] Address [address] [facility] [address] [address] [facility] [address] [place] [address] Care Team Providers Care Firer Portable Boiler Name Role Phone Sydnie Raymundo MD Primary Care Provide r Encounter Details Date Type Department Care Team (Latest Contact Info) Description 02/25/2025 Travel Social History Tobacco Use Types Packs/Day Years Used Date Smoking Tobacco: Never Assessed Comments Unknown Sex and Gender Information Value Date Recorded Sex Assigned at Female 05/29/2022 10:26 AM EDT Legal Sex Female 10:26 AM EDT Gender Identity Female 05/29/2022 10:26 AM EDT Sexual Orientation Straight 05/29/2022 10 :26 AM EDT documented as of this encounter Plan of Treatment Upcoming Encounters Date Type Department Care Team (Late st Contact Info) Description 05/07/2025 10:15 AM EDT Office Visit [facility] [address] [place] [id number] Sydnie Raymundo MD [address] [place], [place] [phone] documented as of this encounter Visit Diagnoses Not on filedocumented in this encounter Care Teams Firer Portable Boiler Relationship Specialty Start Date End Date Sydnie Raymundo MD [address] [place] [address] [phone] PCP - General Internal Medicine 02/25/25 documented as of this encounter
--- OUTSIDE RECORDS SUMMARY | 2025-02-25 10:50 | XMS_ITS | Clinical Summary ---
Author Organization [address] Address [address] [place] [phone] Phone Care Team Providers Care Host Hostess Name Role Phone Physician, No Pcp Primary Care Provider Unavaila ble Allergies No known active allergies Medications etonogestrel-eluti ng contraceptive device (Nexplanon) 68 mg implant subdermal implant Inject 68 mg into the skin Once. 2 Active Active Problems Problem Noted Date Diagnosed Date COVID-19 affecting in third trimester 07/30/2021 Overview (08/05/2024): + 07/08/21 Anemia affecting in third trimester Overview (08/05/2024): Started on fe supplementation 07/20/21 taking as rx'd Rubella non-immune status, antepartum 02/01/2021 Overview (08/05/2024): Rubella Equivocal-- Vaccinate PP Obesity affecting 01/18/2021 Overview (08/05/2024): BMI 41 HgbA1C at initial labs One hour GTT in first trimester Repeat GTT 24-28 weeks if early is normal Level 2 Survey (at [facility] for BMI >40) Refer to nutrition for BMI >40 Growth US at 32 and 36 weeks for for BMI >40 Weekly NST at 32 weeks for BMI >45 Screen for EARLINE (using tool) and refer for sleep study if positive Anesthesia consult for pre- BMI >45 or >50 lb weight gain Transfer to [facility] for pre- BMI >50 DVT prophylaxis- Lovenox if CS and BMI >35 Subchorionic hemorrhage 01/18/2021 Overview (08/05/2024): 5-17-21pt went to ED because she had spotting. ED was in [place] , pt recently moved back to [place]. She only has the discharge paperwork with her. At the time she was tx'd for uti with antibiotics (keflex) and us confirmed small subchorionic hemmorhage, no further issues. Pt was 5 weeks at the time of u/s. Positive GBS test 03/25/2018 Overview (08/05/2024): Treat in labor Immunizations Name Administration Dates Next Due Influenza Quadravalent, MDCK , 0.5ml, preservative free (Flucelvax) 6mo and older 04/27/2021 Tdap Tetanus diptheria acell ular pertussis (Boostrix; Adacel) 7yo and older 05/25/2021,01/22/2018 Varicella live (Varivax) 12mo and older 04/18/20 18 Surgical History Surgery Date Site/Laterality Comments OTHER SURGICAL HISTORY 03/17/2020 PROCEDURE: OK DILATION & CURETTAGE DX&/THER NONOBSTETRIC; COMMENT: MAB Medical History Medical History Date Comments Asthma DX:Asthma Obese DX:Obese Urinary tract infection DX:Urina ry tract infection Type A blood, Rh positive 01/2021 DX:Typ e A blood, Rh positive Family History Medical History Relation Name Comments No Known Problems Brother 1 No Known Problems Brother 2 Other: autism Brother 3 mild Asthma Daughter Other: autistic Daughter Kidney failure Father No Known Problems Maternal Grandfather Diabetes Maternal Grandmother Other: ?heart issues Maternal Grandmother Diabetes Mother pills/insulin Other: autistic Other nephew No Known Problems Paternal Grandfather No Known Problems Paternal Grandmother Asthma Sister 1 share dad Bipolar disorder Sister 1 share dad Stomach cancer Sister 1 share dad chemo Asthma Sister 2 share dad No Known Problems Sister 3 share mom Breast cancer Neg Hx Cervical cancer Neg Hx Colon cancer Neg Hx Ovarian cancer Neg Hx Pancreatic cancer Neg Hx Prostate cancer Neg Hx Uterine cancer Neg Hx Relation Name Status Comments Brother 1 Alive Brother 2 Alive Brother 3 Alive Daughter Alive Father Maternal Grandfather Alive Maternal Grandmother Mother Alive Other nephew Alive Paternal Grandfather Paternal Grandmother Sister 1 share dad Alive Sister 2 share dad Alive Sister 3 share mom Alive Social History Tobacco Use Types Packs/Day Years Used Date Smoking Tobacco: Never Smokeless Tobacco: Never Tobacco Cessation:Counseling Given: Not Answered Alcohol Use Standard Drinks/Week Comments Not Currently 0 (1 standard drink = 0.6 oz pur e alcohol) Comments No Sex and Gender Information Value Date Recorded Sex Assigned at Not on file Legal Sex Female 4:35 AM EST Gender Identity Not on file Sexual Orientation Not on file Obstetrics History Para Term AB IAB SAB Ectopic Multiple Livin g Live Births 3 2 2 0 1 0 1 0 0 2 2 Date Outcome GA Total Labor Labor/2nd/3rd Weight Sex Type Anes PTL Lizzie A1 A5 Name Clin 2017 Term 40w 1d 20h 03m 16h 59m/3h 02m/0h 02m 3920 g (138.3 oz) F Vag-S pont Epidur al N Livin g 8 9 Aidaly z Erin Alvere z-Rive ra Memo Benitezho p CNM Complications:Fever,Carrier of group B Streptococcus Delivery Location:[facility] Comments:had fever, me c fluid 2019 SAB 15w 2d SAB Genera l hung Delivery Location:[facility] Comments:suction dilat ion and curettage - MAB . u/s confirmed 12 weeks demise 2021 Term 39w 2d 3005 g (106 oz) F Vag-S pont Epidur al Livin g Victor Manuel Aguilera , CHARO Delivery Location:[facility] Last Filed Vital Signs Vital Sign Reading Time Taken Comments Blood Pressure 101/76 08/25/2024 1:24 PM EST Pulse 98 08/25/2024 1:24 PM EST Temperature - - Respiratory Rate - - Oxygen Saturation - - Inhaled Oxygen Concentration - - Weight 111 kg (244 lb) 10/10/2021 1:04 PM EDT Height 165.1 cm (5' 5 ) 10/10/2021 1:04 PM EDT Body Mass Index 40.6 10/10/2021 1:04 PM EDT Plan of Treatment Health Maintenance Due Date Last Done Comments Meningococcal B Vaccine (1 of 2 - Standard) 2017 Gonorrhea/Chlamydia Screening 03/02/2022 03/02/2021 Cholesterol Screening (Lipid Panel) 07/02/2022 Social Influencers of Health Screening 07/02/2022 Cervical Cancer Screening: Pap Smear 2022 COVID-19 Vaccine ( season) 2024 Depression Screening 07/30/2024 Influenza Vaccine (#1) 2025 04/27/2021 DTaP,Tdap,and Td Vaccines (9 - Td or Tdap) 05/25/2031 05/25/2021, 01/22/2018, 04/23/2014, Additional history exists Hepatitis B Vaccines Completed 02/18/2002, 2001, 2001 Pneumococcal Vaccine: Pediatrics (0 to 5 Years) and At-Risk Patients (6 to 49 Years) Completed 10/29/2003, 05/18/2003 HIB Vaccines Completed 09/15/2004, 04/30, 02/18/2002, Additional history exists IPV Vaccines Completed 08/14/2007, 01/28, 2001, Additional history exists HPV Vaccines Completed 12/31/2015, 11/17/2014 Hepatitis A Vaccines Completed 12/31/2015, 11/18/19 15 Varicella Vaccines Completed 04/18/2018, 0 04/23/2014, 10/29/2003 Meningococcal ACWY Vaccine Completed 12/01/2019, HIV Screening Completed 01/28/2021 Hepatitis C Screening Completed 01/28/2021 MMR Vaccines Completed 08/01/2021, 07/30, 05/18/2003 RSV Immunization Patients Under 20 months Aged Out No longer eligible based on patient's age to complete this topic Procedures Procedure Name Priority Date/Time Associated Diagnosis Comments GONORRHEA/CHLAMYDIA SCRREENING Routine 03/02/2021 HEPATITIS C SCREENING Routine 01/28/2021 HIV SCREENING Routine 01/28/2021 from Last 3 Months or Most Recently Relevant to Health Maintenance Results * Gonorrhea/Chlamydia Screening (03/02/2021) HM Gonorrhea/Chla mydia Screening abstracted us Historical Provider HEALTH MAINTENANCE Final Result * HIV Screening (01/28/2021) HIV Screening abstracted Historical Provider HEALTH MAINTENANCE Final Result * Hepatitis C Screening (01/28/2021) Hepatitis C Screening abstracted [facility] Provider HEALTH MAINTENANCE Final Result from Last 3 Months or Most Recently Relevant to Health Maintenance Insurance MEDICAID - [place] Care Teams Host Hostess Relationship Specialty Start Date End Date Physician, No Pcp PCP - General 08/25/24
[2025-02-25 11:29] LABS: MANUAL DIFF FLAG NO
[2025-02-25 11:39] LABS: Hematocrit 39.6 % (37.0-47.0); Hemoglobin 12.8 g/dl (12.0-16.0); Imm Gran Abs Auto 0.01 X10*3/uL (0.00-0.03); Imm Gran Pct Auto 0.1 % (0.0-0.4); Lymphocytes Absolute Auto 2.1 X10*3/uL (1.2-4.9); Mean Corpuscular HGB Conc 32.3 g/dl (31.0-35.0); Mean Corpuscular Hemoglobin 24.6 pg (27.0-33.0); Mean Corpuscular Volume 76.0 fL (80.0-98.0); NRBC Abs Auto 0.000 X10*3/uL (0.0-0.012); NRBC Pct Auto 0.0 /100WBC (0.0-0.2); Platelet Count 348 X10*3/uL (160-400); Red Blood Count 5.21 X10*6/uL (4.20-5.50); White Blood Count 7.4 X10*3/uL (4.8-10.8)
[2025-02-25 12:59] LABS: Hemoglobin A1C 110.0602 umol/L; Total Hemoglobin (HGBA1C) 3428.7143 umol/L
[2025-02-25 13:49] LABS: Alanine Aminotransferase 15 U/L (0-31); Albumin Level 4.3 g/dL (3.5-5.0); Alkaline Phosphatase 108 U/L (39-117); Anion Gap 12 (12-20); Aspartate Amino Transferase 21 U/L (5-31); Blood Urea Nitrogen 12 mg/dL (9-16); Calcium 9.2 mg/dL (8.4-10.2); Carbon Dioxide 24 mmol/L (22-29); Chloride 107 mmol/L (96-108); Cholesterol 165 mg/dL (<200); Estimated Glomerular Filt Rate > 60; HDL Cholesterol 34 mg/dL (>40); Potassium 3.7 mmol/L (3.3-5.1); Sodium 139 mmol/L (135-145); Total Protein 8.2 g/dL (6.5-8.0); Triglycerides 86 mg/dL (<150)
[2025-02-26 08:28] LABS: HIV Num 1 0.09 S/CO (0.00-0.99); ~HepC Num1 0.19 S/CO (0.00-0.79); ~Hepatitis C Antibody Nonreactive (Nonreactive)
== END 2025-02-25 10:02 | disposition home or self-care (01) ==
LOC: HO.HHCL 10:01
PROVIDERS: PCP Internal Medicine; Visit Provider Internal Medicine
DX: E66.09 Other obesity due to excess calories (principal); Z11.59 Encounter for screening for other viral diseases; Z11.4 Encounter for screening for human immunodeficiency virus [HIV]
CPT/HCPCS: 36415; 80053; 80061; 82306; 83036; 84443; 85025; 86803; 87389